=== PATIENT | male | born 1935 | race Caucasian/White ===

== ENCOUNTER 2019-08-30 12:36 | Inpatient (IN) | payer MEDICARE, OTHER ==
[2019-08-30] VITALS (10 sets, daily range): BP systolic 103–144; BP diastolic 52–66
[~2019-08-30] VITALS: Ht 175.3 cm; Wt 82.2 kg
[2019-08-30] MEDS: NS IV ONE ×2 (13:30→16:58)
[2019-08-30 13:34] LABS: MEAN CORPUSCULAR HEMOGLOBIN 29.3 pg (27.0-33.0); MEAN CORPUSCULAR HGB CONC 32.2 g/dl (32.0-36.5); MEAN CORPUSCULAR VOLUME 91.1 fl (80.0-96.0); MONO # 0.1 10^3/uL (0.0-0.8); RED BLOOD COUNT 1.91 10^6/uL (4.30-6.10)
[2019-08-30 13:51] LABS: INR 1.24; PARTIAL THROMBOPLASTIN TIME 31.3 SECONDS (25.0-38.4); PROTHROMBIN TIME 15.3 SECONDS (11.8-14.0)
[2019-08-30 14:02] LABS: ALBUMIN 2.5 GM/DL (3.2-5.2); BILIRUBIN,DIRECT 0.3 MG/DL (0.0-0.2); BILIRUBIN,TOTAL 0.6 MG/DL (0.2-1.0); C REACTIVE PROTEIN QUANTITATIV 12.4 MG/DL (0.00-0.30); CALCIUM LEVEL 7.9 MG/DL (8.8-10.2); CK-MB VALUE MASS 2.3 NG/ML (<3.6); CREATININE FOR GFR 1.61 MG/DL (0.70-1.30); MB/CK RELATIVE INDEX 0.95 (< OR =4); POTASSIUM SERUM 3.6 MEQ/L (3.5-5.1); TOTAL PROTEIN 6.1 GM/DL (6.4-8.2); TROPONIN I 0.02 NG/ML (< 0.10)
[2019-08-30 14:06] LABS: HEMOGLOBIN 5.6 g/dl (13.5-17.5); WHITE BLOOD COUNT 0.4 10^3/uL (4.0-10.0)
[2019-08-30 14:07] LABS: HEMATOCRIT 17.4 % (42.0-52.0); LYMPH # 0.2 10^3/uL (1.5-5.0); PLATELET COUNT, AUTOMATED 15 10^3/uL (150-450)
--- NOTE | 2019-08-30 14:22 | REP ---
Portable chest, single AP view with the patient upright, 01:59 p.m.: Comparison is the PA and lateral chest dated 10/29/2013. There is effacement of the left costophrenic angle as an interval change suggestive of a left pleural effusion. There is diffuse interstitial coarsening, slightly worse than on the comparison study, possibly diffuse interstitial infiltrates versus chronic lung disease. Cardiac size is normal. The onel, mediastinum, skeletal structures are unremarkable. Impression: Effacement of the right costophrenic angle. Coarsened interstitium, chronic versus acute. Electronically Signed by Dario Mcneal MD 08/30/2019 02:14 P
--- NOTE | 2019-08-30 14:35 | REP ---
CT of the brain without IV contrast for fall: I suspect there is a small scalp contusion near the vertex to the left of midline. There is no subdural or epidural hematoma. There is no intraparenchymal or subarachnoid hemorrhage. There is no edema, mass effect or midline shift. The cortical stripe is unremarkable. The ventricles and sulci are dilated compatible with diffuse volume loss. There are bilateral basal ganglia calcifications, likely physiologic. The visualized paranasal sinuses and mastoid air cells are clear. Impression: No subdural hematoma or other acute intracranial hemorrhage. No mass effect, edema or shift. Diffuse volume loss. Bilateral basal ganglia calcifications, likely physiologic. Electronically Signed by Dario Mcneal MD 08/30/2019 02:26 P
--- NOTE | 2019-08-30 14:44 | REP ---
CT of the chest without IV contrast: There are no comparison chest CTs. There is a comparison portable plain film study from earlier today. There is a right pleural effusion corresponding to the effacement of the right costophrenic angle on the comparison plain film study. There are a few tiny air bubbles within the effusion suggesting this could be a pneumo hemothorax or pneumohydrothorax. No rib fractures are identified. No vertebral fractures are identified. No clavicle or sternal fractures are identified. No vertebral fractures are identified. There are no infiltrates or pleural fluid collections on the left. No masses or nodules are identified. The interstitium is diffusely coarsened, nonspecific. This could be acute or chronic or combination. The unenhanced thoracic aorta is unremarkable. Cardiac size is upper normal. There is no pericardial effusion. There is an endovascular stent in the suprarenal abdominal aorta. Impression: Right pleural fluid collection with a few tiny air bubbles, hydropneumothorax versus hemopneumothorax. No rib fractures are identified. No vertebral, sternal, or scapular fractures are identified. There are no infiltrates. There are no masses or nodules. There are is a diffusely coarsened interstitium which could be chronic or acute. The unenhanced thoracic aorta is unremarkable. There is an endovascular stent in the suprarenal abdominal aorta. Electronically Signed by Dario Mcneal MD 08/30/2019 02:36 P
--- NOTE | 2019-08-30 14:45 | REP ---
CT study of the cervical spine without contrast: History: Injury in a fall. No comparison C-spine CT study. Technique: Helical scanning is acquired and overlapping 2 mm high resolution axial images were generated and reviewed at bone and soft tissue window settings. Coronal and sagittal multiplanar re-formations images are generated. CT findings: There is no evidence of cervical spine element fracture. No skull base fracture is seen. Cervical vertebral body heights are preserved. Alignment is normal. Facet joints are normally aligned bilaterally at each cervical level on multiplanar re-formations images. There is no evidence of intraspinal or paraspinal hematoma. No extra vertebral abnormality is seen. There are mild to moderate degenerative spondylosis changes. There is uncovertebral spurring bilaterally at C3-C4. 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 There is osteoarthritic hypertrophy and irregularity at the articulation between the dens and the anterior arch of C1. Impression: Moderate degenerative spondylosis changes. Otherwise negative CT study of the cervical spine without contrast. No fracture seen. Electronically Signed by Roe Thakkar MD 08/30/2019 03:15 P
--- NOTE | 2019-08-30 14:51 | REP ---
CT of the abdomen and pelvis without IV and oral contrast for trauma: There are no comparison studies. There is a right pleural fluid collection with a few tiny air bubbles in the visualized lower lung dove, hydropneumothorax versus hemopneumothorax. The unenhanced hepatic parenchyma is homogeneous except for A 3.2 cm cyst subcapsular in the periphery of the left lobe and a 1.7 cm cyst in the caudate lobe. The gallbladder, pancreas and unenhanced spleen are unremarkable. The adrenals are unremarkable. The unenhanced kidneys are unremarkable except for multiple renal cysts, the largest is in the right renal upper pole measuring up to 12.8 cm. There is a suprarenal abdominal aortic stent as an infrarenal abdominal aortic stent. There is no pararenal hematoma. The maximal AP diameter of the abdominal aorta is 5.2 cm and the transverse diameter and is 4.8 cm. The bowel and mesentery are unremarkable. Pelvis: There is no free fluid or hemoperitoneum. There is a right hip arthroplasty resulting in beam hardening and significant image degradation. The bladder is grossly unremarkable. The pelvic bowel loops are unremarkable. There is no lumbar vertebral body compression deformity or listhesis. No lumbar, sacral or pelvic fractures are identified. Impression: There is no hemoperitoneum or pneumoperitoneum. There is no evidence of solid organ injury, however the study is insensitive in the absence of IV contrast. There are multiple renal cysts as described. There is a suprarenal and infrarenal abdominal aortic endovascular stent as described. No periaortic or retroperitoneal hematoma. No lumbar or pelvic fracture. Left hip arthroplasty. Electronically Signed by Dario Mcneal MD 08/30/2019 02:43 P
[2019-08-30] MEDS ORDERED: CEFEPIME HCL 2 GM in D5W MINI-BAG PLUS 50 ML IV ONE (15:00)
[2019-08-30] MEDS ORDERED: FOLI1TAB11 PO (15:46)
[2019-08-30] MEDS ORDERED: METO25TA4 PO (15:46)
[2019-08-30] MEDS ORDERED: ASPI81TA85 PO (15:46)
[2019-08-30] MEDS ORDERED: TRIA50CA41 PO (15:46)
[2019-08-30] MEDS ORDERED: SYNT50TA PO (15:46)
[2019-08-30] MEDS ORDERED: FURO20TA2 PO (15:46)
[2019-08-30] MEDS ORDERED: TAMS1CAP17 PO (15:46)
[2019-08-30] MEDS ORDERED: METF-791 PO (15:46)
[2019-08-30] MEDS ORDERED: PRAV40TA2 PO (15:46)
[2019-08-30] MEDS ORDERED: VITMTA PO (15:46)
[2019-08-30] MEDS ORDERED: VITAD1000T PO (15:46)
[2019-08-30] MEDS ORDERED: FISH1000 PO (15:46)
[2019-08-30 15:57] LABS: APPEARANCE, URINE CLEAR (CLEAR); BILIRUBIN, URINE AUTO NEGATIVE (NEGATIVE); COLOR, URINE YELLOW (YELLOW); GLUCOSE, URINE (UA) AUTO NEGATIVE (NEGATIVE); KETONE, URINE AUTO NEGATIVE (NEGATIVE); NITRITE, URINE AUTO NEGATIVE (NEGATIVE); PROTEIN, URINE AUTO NEGATIVE (NEGATIVE); SPECIFIC GRAVITY URINE AUTO 1.013 (1.002-1.035); UROBILINOGEN, URINE AUTO 0.2 mg/dL (0.0-2.0)
[2019-08-30 15:58] LABS: BLOOD, URINE BLOOD NEGATIVE (NEGATIVE); LEUKOCYTE ESTERASE, URINE AUTO NEGATIVE (NEGATIVE); RBC, URINE AUTO 1 /HPF (0-3); WBC, URINE AUTO 1 /HPF (0-3)
[2019-08-30 16:00] LABS: MUCUS, URINE SMALL (NEGATIVE)
[2019-08-30 16:03] LABS: INFLUENZA A AMPLIFICATION NEGATIVE (NEGATIVE); INFLUENZA B AMPLIFICATION NEGATIVE (NEGATIVE)
[2019-08-30] MEDS ORDERED: NS 1,000 ML IV SCH (16:35)
[2019-08-30] MEDS ORDERED: diphenhydrAMINE 25 MG CAP PO ONE (16:45)
[2019-08-30] MEDS ORDERED: MAGIC MOUTHWASH SUSPENSION BTL SSP PRN (16:45)
[2019-08-30] MEDS ORDERED: ACETAMINOPHEN TAB 650MG DOSE (2X325MG) PO ONE (16:45)
[2019-08-30] MEDS ORDERED: GLUCAGON FOR INJ 1 MG VIAL (J1610) SC PRN (17:15)
[2019-08-30] MEDS ORDERED: GLUCOSE 4 GM CHEW TABLET PO PRN (17:15)
[2019-08-30] MEDS ORDERED: DEXTROSE 50% 50 ML SYRINGE IV PRN (17:15)
[2019-08-30] MEDS: HumaLOG INSULIN (NovoLOG) PER UNIT SC SCH ×2 (17:30→21:00)
--- NOTE | 2019-08-30 18:08 | HPE ---
DATE OF ADMISSION: 08/30/2019 Time: Approximately 4:30 p.m. CHIEF COMPLAINT: Found down. HISTORY OF THE PRESENT ILLNESS: Mr. 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 He has received two cycles of chemotherapy. His last chemotherapy session was 2 weeks ago. Today at home patient was found down by his daughter and was subsequently brought into the emergency room to be evaluated. On arrival, the patient was febrile with a temperature of 102.1, pulse of 116, blood pressure 104/54. He was found to be severely neutropenic with only 400 white blood cells and an ANC of 20. In addition, he was found to be severely anemic with a hemoglobin of 5.6, hematocrit of 17.4, and a platelet count of 15,000. He had bruising on his left forearm from his fall with some skin abrasions, otherwise no other areas of ecchymoses noted. He underwent extensive radiologic evaluation in the emergency department (ED) with no evidence of any acute fractures whatsoever. He was found to have a lactic acid of 3.1. He is in the process of being treated with the sepsis protocol. He has also been typed and crossed and is receiving one unit of packed red blood cells in addition to cefepime. The patient's daughter and son are at the bedside. They have to look after him. The patient lives alone. This morning when his daughter went to check on him, she found him down. He has some dry blood in his oral cavity. Aside from that, no other visible areas of bleeding are noted with the exception of his left forearm with the ecchymosis but no visible hematomas. His daughter reports that he had an episode of diarrhea but other than that, he has been doing fine. Yesterday he was quite well, and this was acute onset from discussion with the patient as well as his children. ALLERGIES: No known drug allergies. MEDICATIONS: Patient's current home medication are: - aspirin 81 mg daily - cholecalciferol 1000 units daily - folic acid 2 mg daily - furosemide 20 mg daily - Synthroid 50 mcg in the morning - metformin 500 mg in the evening - metoprolol 25 mg twice a day - multivitamin one capsule daily - fish oil 1000 mg twice a day - pravastatin 40 mg daily - Flomax 0.4 mg daily - triamterene 50 mg by mouth daily PAST MEDICAL HISTORY: Notable for: Hypertension. Non-insulin dependent diabetes. He was recently hospitalized at the [facility] for approximately 3 weeks from June into July for treatment of pneumonia. He has right lung small cell lung cancer. He has a history of rheumatoid arthritis. He has a history of hyperlipidemia. History of BPH. History of vitamin D deficiency. PAST SURGICAL HISTORY: Pertinent for: Left hip arthroplasty. 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 He has a history of right pleural effusions, status post chest tube in the past as well as lung biopsy diagnosed as right lung cancer. SOCIAL HISTORY: Patient lives alone. He does not use tobacco or alcohol. His son is his surrogate medical decision maker. On discussion of code status with the patient, he elects to be a DO NOT RESUSCITATE, DO NOT INTUBATE. FAMILY HISTORY: Family history was asked but is noncontributory. REVIEW OF SYSTEMS: 12-systems reviewed with the patient, otherwise negative. He has had a fever, recent fall. He had an episode of diarrhea. He is not having any abdominal pain, any chest pain, any arm pain. He does have chronic lower extremity lymphedema following an episode of cellulitis after a hip arthroplasty. I did look at his wound on his left lateral leg. No evidence of erythema or drainage is noted. He does not have any lesion on his right leg. PHYSICAL EXAMINATION: The patient's temperature is 102.1 rectally, pulse is 116, respirations 25, blood pressure 104/54, oxygen saturation (O2 sat) is 98% on room air. General: Mr. Mehta is an elderly gentleman who appears to be quite frail in appearance. His head is atraumatic, normocephalic. His pupils are equal, round, and reactive to light. Oropharynx is dry. He has some dry blood in his superior palate. No visible oral lesions are noted. Neck His neck is supple. No cervical spine tenderness. No palpable lymphadenopathy. Lung sounds are heard bilaterally without any audible rales, wheezing or rhonchi. Heart: S1, S2, no audible murmurs, rubs, or gallops. He is slightly tachycardic at this time on telemetry. His abdomen is soft, nontender, nondistended. Extremities: Without any significant cyanosis, clubbing, or edema. He has some trace pedal edema from where he had his Coban dressing. Neurologic: Cranial nerves II-XII grossly intact. He is moving all four extremities. Speech is fluent. He has no facial asymmetry. Relevant diagnostic studies are the following: Urine and blood culture have been drawn and are pending. Chest x-ray showed a right pleural effusion. CT of the chest did not show any acute abnormality aside from right pleural fluid collection with a few tiny air bubbles, hydropneumothorax versus hemopneumothorax. This is the site of previous chest tube as well as pleural effusion in the past from what his children tell me. CT of the head did not show any acute findings. CT of the spine did not show any findings. Influenza panel was negative. Urinalysis was negative. Lactic acid was 3.1. Sodium 134, potassium 3.6, chloride 97, bicarbonate 29, BUN is 34, creatinine is 1.61, glucose is 145, INR is 1.24. White blood cell count is 0.4 with an ANC of 20. Hemoglobin is 5.6, hematocrit is 17.4, platelet counts are 15,000. IMPRESSION; 1. Febrile neutropenia. Patient will be admitted to inpatient, warrants minimal two-midnight hospital stay. He will be placed on cefepime 2 grams IV every 8 hours as well as doxycycline 100 mg IV every 12 hours. Cultures have been drawn and are pending at this time. We will consult oncology and infectious disease (ID) in the morning. 2. Pancytopenia. Likely secondary to chemotherapy effect. Patient has already received one unit of packed red blood cells. We will give an additional two units in addition to one pack of platelets. Patient will be treated with Neupogen 480 mcg daily until his ANC is greater than 1500. 3. Non-insulin dependent diabetes mellitus. The patient will be placed on sliding scale. Will hold his metformin for now given that he underwent CT scan of his chest without contrast but anyways due to his acute illness, his metformin will be held. 4. Hypertension. All patients blood pressure medications, including diuretic, will be held. 5. Acute kidney injury. Likely secondary to dehydration with diuretic therapy. His Lasix will be held. He will be hydrated with IV fluid. Will recheck his BMP in the morning. On the CT scan of his abdomen and pelvis, no issues were noted involving his renal system. The patient will be placed on sequential compression devices (SCDs) for deep vein thrombosis (DVT) prophylaxis due to his acute thrombocytopenia. He will be a DO NOT INTUBATE, DO NOT RESUSCITATE per my conversation with him in the presence of his children.
--- NOTE | 2019-08-30 19:00 | ECGEPIP ---
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
[2019-08-30] MEDS: DOXYCYCLINE HYCLATE 100 MG in D5W MINI-BAG PLUS 100 ML IV SCH (21:26)
[2019-08-30] MEDS: NYSTATIN 500,000 U/5 ML SUSP UDC SS SCH (21:26)
[2019-08-30] MEDS: PRAVASTATIN 20 MG TAB PO SCH (21:27)
[2019-08-31] VITALS (15 sets, daily range): BP systolic 96–132; BP diastolic 50–67; O2SAT 94–96
[2019-08-31] MEDS: NS 1,000 ML IV SCH ×3 (01:45→12:45)
[2019-08-31] MEDS: CEFEPIME HCL 2 GM in D5W MINI-BAG PLUS 50 ML IV SCH ×2 (02:56→16:37)
[2019-08-31 05:38] LABS: HEMATOCRIT 23.1 % (42.0-52.0); HEMOGLOBIN 7.5 g/dl (13.5-17.5); MEAN CORPUSCULAR HEMOGLOBIN 29.6 pg (27.0-33.0); MEAN CORPUSCULAR HGB CONC 32.5 g/dl (32.0-36.5); MEAN CORPUSCULAR VOLUME 91.3 fl (80.0-96.0); RED BLOOD COUNT 2.53 10^6/uL (4.30-6.10)
[2019-08-31 05:54] LABS: PLATELET COUNT, AUTOMATED 13 10^3/uL (150-450); WHITE BLOOD COUNT 0.9 10^3/uL (4.0-10.0)
[2019-08-31 06:03] LABS: BLOOD UREA NITROGEN 25 MG/DL (7-18); CALCIUM LEVEL 7.3 MG/DL (8.8-10.2); CARBON DIOXIDE LEVEL 28 MEQ/L (21-32); CHLORIDE LEVEL 109 MEQ/L (98-107); CREATININE FOR GFR 0.98 MG/DL (0.70-1.30); GLOMERULAR FILTRATION RATE > 60.0 (>35); GLUCOSE, FASTING 85 MG/DL (70-100); MAGNESIUM LEVEL 1.6 MG/DL (1.8-2.4); POTASSIUM SERUM 3.5 MEQ/L (3.5-5.1); SODIUM LEVEL 141 MEQ/L (136-145)
[2019-08-31] MEDS: DOXYCYCLINE HYCLATE 100 MG in D5W MINI-BAG PLUS 100 ML IV SCH ×2 (06:10→18:35)
[2019-08-31] MEDS: LEVOTHYROXINE 50MCG TABLET (0.05MG) PO SCH (06:10)
[2019-08-31] MEDS: HumaLOG INSULIN (NovoLOG) PER UNIT SC SCH ×4 (07:30→20:38)
[2019-08-31 08:48] LABS: EOS % 10.9 % (0.0-3.0); LYMPH % 58.7 % (24.0-44.0); MONO % 21.7 % (0.0-5.0); NEUTROPHILS # 0.1 10^3/uL (1.5-8.5); NEUTROPHILS % 8.7 % (36.0-66.0)
[2019-08-31 08:49] LABS: EOS # 0.1 10^3/uL (0.0-0.5); LYMPH # 0.5 10^3/uL (1.5-5.0); MONO # 0.2 10^3/uL (0.0-0.8)
[2019-08-31] MEDS: NYSTATIN 500,000 U/5 ML SUSP UDC SS SCH ×4 (09:34→20:39)
[2019-08-31] MEDS: FOLIC ACID 1 MG TAB PO SCH (09:34)
[2019-08-31] MEDS: TAMSULOSIN 0.4 MG CAP PO SCH (09:34)
[2019-08-31] MEDS: MAG SULF 1GM/100ML (MAG RUN) 1 GM in IV 1 EA IV SCH ×2 (10:41→12:08)
[2019-08-31] MEDS: FILGRASTIM 480 MCG/0.8 ML SYRINGE (J1442) SC SCH (10:41)
[2019-08-31 11:39] LABS: HEMATOCRIT 23.9 % (42.0-52.0); HEMOGLOBIN 7.8 g/dl (13.5-17.5); MEAN CORPUSCULAR HEMOGLOBIN 29.9 pg (27.0-33.0); MEAN CORPUSCULAR HGB CONC 32.6 g/dl (32.0-36.5); MEAN CORPUSCULAR VOLUME 91.6 fl (80.0-96.0); RED BLOOD COUNT 2.61 10^6/uL (4.30-6.10)
[2019-08-31 11:43] LABS: PLATELET COUNT, AUTOMATED 25 10^3/uL (150-450)
[2019-08-31] MEDS: SLF 3 ML SYR IV SCH ×2 (14:00→20:39)
--- NOTE | 2019-08-31 14:44 | IPNPDOC ---
Subjective Date Seen The patient was seen on 08/31/19. Subjective Chief Complaint/HPI Afebrile this morning, c/o feeling cold. Tolerated blood transfusions w/o complication. No active bleeding. Objective Physical Examination General Exam: Positive: Alert, Cooperative, Other (frail elderly gentleman) Eye Exam: Positive: Conjunctiva & lids normal; Negative: Sclera icteric ENT Exam: Positive: Mucous membr. moist/pink Neck Exam: Positive: Supple; Negative: Other Chest Exam: Positive: Clear to auscultation Heart Exam: Positive: Normal S1, Normal S2 Abdomen Exam: Positive: Normal bowel sounds Extremity Exam: Negative: Clubbing, Cyanosis, Edema Skin Exam: Negative: Rash Psych Exam: Positive: Mental status NL, Mood NL Assessment /Plan Assessment # Febrile neutropenia - continue doxycycline + cefepime until ANC > 1500 - continue neupogen - await cx results # Chemo induced Pancytopenia - s/p prbc x 3 - s/p PLTs with improvment in plt count - neupogen # NIDDM - holding metformin - continue SS # HTN - SBP < 120 mm Hg, holding diuretic and anti-HTN meds # Acute kidney injury with CKD stage 3 - improved with IVFs # DVT prophylaxis - SCDs only - Plan/VTE VTE Prophylaxis Ordered?: Yes VTE Exclusion Mechanical Proph: N/A:VTE Prophy Ordered VTE Exclusion Pharmacological: Thrombocytopenia VS, I&O, 24H, Fishbone Vital Signs/I&O Vital Signs Date Time Temp Pulse Resp B/P (MAP) Pulse Ox O2 Delivery O2 Flow Rate FiO2 08/31/19 09:30 97.3 84 20 119/57 95 Room Air 2.0 I&O- Last 24 Hours up to 6 AM 08/31/19 06:00 Intake Total 3880 ml Output Total 1675 ml Balance 2205 ml Laboratory Data 24H LABS Laboratory Tests 2 08/30/19 15:10: Urine Color YELLOW, Urine Appearance CLEAR, Urine pH 6.0, Urine Specific [place] 1.013, Urine Protein NEGATIVE, Urine Glucose (Auto)(UA) NEGATIVE, Urine Ketones (Auto) NEGATIVE, Urine Blood NEGATIVE, Urine Nitrite NEGATIVE, Urine Bilirubin NEGATIVE, Urine Urobilinogen 0.2, Urine Leukocyte Esterase (Auto) NEGATIVE, Urine WBC (Auto) 1, Urine RBC (Auto) 1, Urine Mucus (Auto) SMALL, Urine Sperm (Auto) , Influenza Type A (RT-PCR) NEGATIVE, Influenza Type B (RT-PCR) NEGATIVE 08/30/19 19:50: Bedside Glucose (Misc Panel) 112H 08/31/19 05:20: Lactic Acid Level 0.8 08/31/19 05:22: Immature Granulocyte % (Auto) 0.0, Neutrophils (%) (Auto) 8.7L, Lymphocytes (%) (Auto) 58.7H, Monocytes (%) (Auto) 21.7H, Eosinophils (%) (Auto) 10.9H, Basophils (%) (Auto) 0.0, Immature Granulocyte # (Auto) 0.0, Neutrophils # (Auto) 0.1L, Lymphocytes # (Auto) 0.5L, Monocytes # (Auto) 0.2, Eosinophils # (Auto) 0.1, Basophils # (Auto) 0.0, Nucleated Red Blood Cells % (auto) 0.0, Platelet Estimate , Anion Gap 4L, Glomerular Filtration Rate > 60.0, Calcium Level 7.3L, Magnesium Level 1.6L 08/31/19 08:14: Bedside Glucose (Misc Panel) 86 08/31/19 11:03: Nucleated Red Blood Cells % (auto) 0.0 08/31/19 11:50: Bedside Glucose (Misc Panel) 117H CBC/BMP Laboratory Tests 08/31/19 05:22 08/31/19 11:03 Microbiology Microbiology 08/30/19 Urine Culture, Received Pending 08/30/19 Blood Culture - Preliminary, Resulted No growth after 24 hours . All specim... 08/30/19 Blood Culture - Preliminary, Resulted No growth after 24 hours . All specim... BRADLY GROSSMAN MD Aug 31, 2019 14:44
[2019-08-31] MEDS ORDERED: SLF 3 ML SYR IV PRN (15:00)
[2019-08-31] MEDS: PRAVASTATIN 20 MG TAB PO SCH (17:46)
[2019-09-01] VITALS (13 sets, daily range): BP systolic 123–161; BP diastolic 60–72; O2SAT 93–97
[2019-09-01] MEDS: NS 1,000 ML IV SCH (00:13)
[2019-09-01] MEDS: CEFEPIME HCL 2 GM in D5W MINI-BAG PLUS 50 ML IV SCH ×2 (03:19→15:19)
[2019-09-01 05:40] LABS: HEMATOCRIT 25.7 % (42.0-52.0); HEMOGLOBIN 8.3 g/dl (13.5-17.5); MEAN CORPUSCULAR HEMOGLOBIN 29.2 pg (27.0-33.0); MEAN CORPUSCULAR HGB CONC 32.3 g/dl (32.0-36.5); MEAN CORPUSCULAR VOLUME 90.5 fl (80.0-96.0); RED BLOOD COUNT 2.84 10^6/uL (4.30-6.10)
[2019-09-01 05:42] LABS: PLATELET COUNT, AUTOMATED 25 10^3/uL (150-450)
[2019-09-01 05:57] LABS: ATYPICAL LYMPH 3 % (0-5); EOSINOPHILS 6 % (0-3); LYMPHOCYTES 31 % (16-44); METAMYELOCYTES 2 % (0-0); MONOCYTES 13 % (0-5); MYELOCYTES 2 % (0-0); NEUTROPHILS 39 % (28-66)
[2019-09-01 06:00] LABS: POLYCHROMASIA 1+
[2019-09-01 06:03] LABS: ANISOCYTOSIS 1+; POIKILOCYTOSIS 1+
[2019-09-01 06:04] LABS: DOHLE BODIES 1+; PLATELET ESTIMATE MARKED DECREASE (NORMAL)
[2019-09-01] MEDS: SLF 3 ML SYR IV SCH ×3 (06:38→20:24)
[2019-09-01] MEDS: LEVOTHYROXINE 50MCG TABLET (0.05MG) PO SCH (06:38)
[2019-09-01] MEDS: DOXYCYCLINE HYCLATE 100 MG in D5W MINI-BAG PLUS 100 ML IV SCH ×2 (06:38→19:01)
[2019-09-01] MEDS: HumaLOG INSULIN (NovoLOG) PER UNIT SC SCH ×4 (07:30→20:24)
[2019-09-01] MEDS: TAMSULOSIN 0.4 MG CAP PO SCH (08:05)
[2019-09-01] MEDS: FOLIC ACID 1 MG TAB PO SCH (08:05)
[2019-09-01] MEDS: NYSTATIN 500,000 U/5 ML SUSP UDC SS SCH ×4 (08:05→20:23)
[2019-09-01] MEDS ORDERED: FUROSEMIDE 20 MG TAB PO SCH (09:00)
[2019-09-01] MEDS: FILGRASTIM 480 MCG/0.8 ML SYRINGE (J1442) SC SCH (09:35)
--- NOTE | 2019-09-01 10:44 | IPNPDOC ---
Subjective Date Seen The patient was seen on 09/01/19. Subjective Chief Complaint/HPI Afebrile this am, more altert, sitting up in bed eating breakfast. More talkative. Objective Physical Examination General Exam: Positive: Alert, Cooperative, No Acute Distress Eye Exam: Positive: Conjunctiva & lids normal; Negative: Sclera icteric ENT Exam: Positive: Mucous membr. moist/pink Neck Exam: Positive: Supple; Negative: Other Chest Exam: Positive: Clear to auscultation; Negative: Rhonchi, Wheezing Heart Exam: Positive: Normal S1, Normal S2 Abdomen Exam: Positive: Normal bowel sounds, Soft; Negative: Tenderness Extremity Exam: Negative: Clubbing, Cyanosis, Edema Skin Exam: Negative: Rash Psych Exam: Positive: Mental status NL, Mood NL Assessment /Plan Assessment # Febrile neutropenia - continue doxycycline + cefepime until ANC > 1500 - ANC is improving, 780 this morning - continue neupogen likely another 1-2 says - cultures are no growth so far - transfer to floor with tele - PT eval - anticipate being ready for discharge tuesday # Chemo induced Pancytopenia - s/p prbc x 3 - s/p PLTs with improvment in plt count - neupogen # NIDDM - holding metformin - continue SS # HTN - SBP < 120 mm Hg, holding diuretic and anti-HTN meds # Acute kidney injury with CKD stage 3 - resolved - discontinue IVFs # HTN - resume lasix and metoprolol with parameters - continue to home dyazide # DVT prophylaxis - SCDs only - Plan/VTE VTE Prophylaxis Ordered?: Yes VTE Exclusion Mechanical Proph: N/A:VTE Prophy Ordered VTE Exclusion Pharmacological: Thrombocytopenia VS, I&O, 24H, [facility] Vital Signs/I&O Vital Signs Date Time Temp Pulse Resp B/P (MAP) Pulse Ox O2 Delivery O2 Flow Rate FiO2 09/01/19 10:00 96 Room Air 09/01/19 08:06 98.0 89 20 136/72 (93) 2.0 I&O- Last 24 Hours up to 6 AM 09/01/19 06:00 Intake Total 2755 ml Output Total 950 ml Balance 1805 ml Laboratory Data 24H LABS Laboratory Tests 2 08/31/19 11:03: Nucleated Red Blood Cells % (auto) 0.0 08/31/19 11:50: Bedside Glucose (Misc Panel) 117H 08/31/19 17:38: Bedside Glucose (Misc Panel) 102 08/31/19 20:37: Bedside Glucose (Misc Panel) 147H 09/01/19 05:22: Neutrophils (%) (Auto) , Neutrophils # (Auto) , Nucleated Red Blood Cells % (auto) 0.0, Neutrophils 39, Band Neutrophils 4, Lymphocytes (Manual) 31, Monocytes (Manual) 13H, Eosinophils (Manual) 6H, Metamyelocytes 2H, Myelocytes 2H, Atypical Lymphocytes 3, Polychromasia 1+, Poikilocytosis 1+, Anisocytosis 1+, Dohle Bodies 1+, Platelet Estimate MARKED DECREASE, Immature Platelet Fraction 1.5 CBC/BMP Laboratory Tests 08/31/19 11:03 09/01/19 05:22 Microbiology Microbiology 08/30/19 Urine Culture, Received Pending 08/30/19 Blood Culture - Preliminary, Resulted No growth after 24 hours . All specim... 08/30/19 Blood Culture - Preliminary, Resulted No growth after 24 hours . All specim... BRADLY GROSSMAN MD Sep 01, 2019 10:44
[2019-09-01] MEDS: METOPROLOL TART 25 MG TABLET PO SCH ×2 (11:41→20:23)
[2019-09-01] MEDS: PRAVASTATIN 20 MG TAB PO SCH (17:06)
[2019-09-02] VITALS: BP 125/59
[2019-09-02 04:00] VITALS: BP 130/64
[2019-09-02 06:33] LABS: HEMATOCRIT 27.6 % (42.0-52.0); HEMOGLOBIN 8.9 g/dl (13.5-17.5); MEAN CORPUSCULAR HEMOGLOBIN 29.1 pg (27.0-33.0); MEAN CORPUSCULAR HGB CONC 32.2 g/dl (32.0-36.5); MEAN CORPUSCULAR VOLUME 90.2 fl (80.0-96.0); PLATELET COUNT, AUTOMATED 29 10^3/uL (150-450); RED BLOOD COUNT 3.06 10^6/uL (4.30-6.10); WHITE BLOOD COUNT 5.2 10^3/uL (4.0-10.0)
[2019-09-02] MEDS: LEVOTHYROXINE 50MCG TABLET (0.05MG) PO SCH (06:47)
[2019-09-02] MEDS: CEFEPIME HCL 2 GM in D5W MINI-BAG PLUS 50 ML IV SCH (06:47)
[2019-09-02] MEDS: SLF 3 ML SYR IV SCH ×3 (06:50→20:31)
[2019-09-02 07:06] LABS: ATYPICAL LYMPH 1 % (0-5); EOSINOPHILS 3 % (0-3); LYMPHOCYTES 17 % (16-44); MONOCYTES 15 % (0-5); NEUTROPHILS 58 % (28-66); NUCLEATED RED BLOOD CELL 1 % (0-0)
[2019-09-02 07:07] LABS: ANISOCYTOSIS 1+; PLATELET ESTIMATE MARKED DECREASE (NORMAL)
[2019-09-02 07:08] LABS: DOHLE BODIES 1+
[2019-09-02 07:10] LABS: BLOOD UREA NITROGEN 10 MG/DL (7-18); CALCIUM LEVEL 7.3 MG/DL (8.8-10.2); CARBON DIOXIDE LEVEL 29 MEQ/L (21-32); CHLORIDE LEVEL 108 MEQ/L (98-107); CREATININE FOR GFR 0.78 MG/DL (0.70-1.30); GLOMERULAR FILTRATION RATE > 60.0 (>35); GLUCOSE, FASTING 88 MG/DL (70-100); POTASSIUM SERUM 2.6 MEQ/L (3.5-5.1); SODIUM LEVEL 142 MEQ/L (136-145)
[2019-09-02] MEDS: DOXYCYCLINE HYCLATE 100 MG in D5W MINI-BAG PLUS 100 ML IV SCH (07:13)
[2019-09-02] MEDS: HumaLOG INSULIN (NovoLOG) PER UNIT SC SCH ×4 (07:30→20:31)
[2019-09-02 08:00] VITALS: BP 121/62
[2019-09-02 08:33] LABS: MAGNESIUM LEVEL 1.6 MG/DL (1.8-2.4)
[2019-09-02] MEDS: NYSTATIN 500,000 U/5 ML SUSP UDC SS SCH ×2 (08:44→11:31)
[2019-09-02] MEDS: FOLIC ACID 1 MG TAB PO SCH (08:44)
[2019-09-02] MEDS: POTASSIUM CHLORIDE 10 MEQ SR TABLET PO SCH ×5 (08:44→20:30)
[2019-09-02] MEDS: TAMSULOSIN 0.4 MG CAP PO SCH (08:45)
[2019-09-02] MEDS: METOPROLOL TART 25 MG TABLET PO SCH ×2 (08:45→20:31)
[2019-09-02] MEDS ORDERED: ACETAMINOPHEN TAB 650MG DOSE (2X325MG) PO PRN (10:30)
[2019-09-02 11:33] VITALS: BP 126/58
--- NOTE | 2019-09-02 11:42 | IPNPDOC ---
Subjective Date Seen The patient was seen on 09/02/19. Subjective Chief Complaint/HPI Joseluis has been afebrile for 48 hours. Needing oxygen nocturnally 2 lpm. Feels better. Objective Physical Examination General Exam: Positive: Alert, Cooperative, No Acute Distress Eye Exam: Positive: Conjunctiva & lids normal; Negative: Sclera icteric ENT Exam: Positive: Mucous membr. moist/pink Neck Exam: Positive: Supple; Negative: Other Chest Exam: Positive: Clear to auscultation, Diminished; Negative: Rhonchi, Wheezing Heart Exam: Positive: Normal S1, Normal S2 Abdomen Exam: Positive: Normal bowel sounds, Soft; Negative: Tenderness Extremity Exam: Negative: Clubbing, Cyanosis, Edema Skin Exam: Negative: Rash Psych Exam: Positive: Mental status NL Assessment /Plan Assessment # Febrile neutropenia - discontinue doxycycline + cefepime, cultures are negative and afebrile > 48 hours - ANC 3016 - discontinue neupogen - PT eval - anticipate being ready for discharge tuesday # Chemo induced Pancytopenia - s/p prbc x 3 - s/p PLTs with improvment in plt count - neupogen stopped # NIDDM - holding metformin - continue SS # HTN - SBP < 120 mm Hg, holding diuretic and anti-HTN meds # Acute kidney injury with CKD stage 3 - resolved - discontinue IVFs # HTN - resume metoprolol with parameters - holding home dyazide # Hypokalemia - hold lasix + dyazide - start replacement K - repeat level today - start mag oxide 400 mg tid # Nocturnal hypoxia - cxr in am # DVT prophylaxis - SCDs only - Plan/VTE VTE Prophylaxis Ordered?: Yes VTE Exclusion Mechanical Proph: N/A:VTE Prophy Ordered VTE Exclusion Pharmacological: Thrombocytopenia VS, I&O, 24H, Fishbone Vital Signs/I&O Vital Signs Date Time Temp Pulse Resp B/P (MAP) Pulse Ox O2 Delivery O2 Flow Rate FiO2 09/02/19 08:45 63 121/62 09/02/19 08:00 97.3 18 99 Room Air 09/02/19 08:00 2.0 I&O- Last 24 Hours up to 6 AM 09/02/19 06:00 Intake Total 2190 ml Output Total 300 ml Balance 1890 ml Laboratory Data 24H LABS Laboratory Tests 2 09/01/19 11:48: Bedside Glucose (Misc Panel) 157H 3/14/20 17:02: Bedside Glucose (Misc Panel) 68L 09/01/19 20:17: Bedside Glucose (Misc Panel) 138H 09/02/19 06:14: Immature Granulocyte % (Auto) , Neutrophils (%) (Auto) , Nucleated Red Blood C ells % (auto) 0.4H, Neutrophils 58, Band Neutrophils 6, Lymphocytes (Manual) 17, Monocytes (Manual) 15H, Eosinophils (Manual) 3, Atypical Lymphocytes 1, Nucleated Red Blood Cells 1H, Anisocytosis 1+, Dohle Bodies 1+, Platelet Estimate MARKED DECREASE, Immature Platelet Fraction 2.2, Anion Gap 5L, Gl omerular Filtration Rate > 60.0, Calcium Level 7.3L, Magnesium Level 1.6L CBC/BMP Laboratory Tests 09/02/19 06:14 Microbiology Microbiology 08/30/19 Urine Culture - Final, Complete Escherichia Coli 08/30/19 Blood Culture - Preliminary, Resulted No Growth after 48 hours. All Specime... 08/30/19 Blood Culture - Preliminary, Resulted No Growth after 48 hours. All Specime... BRADLY GROSSMAN MD Sep 02, 2019 11:42
[2019-09-02] MEDS: MAGNESIUM OXIDE 400 MG TAB (MAG-OX) PO SCH ×3 (12:03→20:29)
[2019-09-02] MEDS: KCL 10MEQ/100ML SWI (KRUN) 10 MEQ in IV 1 EA IV SCH ×2 (14:12→15:26)
[2019-09-02 15:54] VITALS: BP 133/61
[2019-09-02] MEDS: PRAVASTATIN 20 MG TAB PO SCH (16:45)
[2019-09-02 20:00] VITALS: BP 139/97
[2019-09-03 04:00] VITALS: BP 131/55
[2019-09-03 05:37] LABS: HEMATOCRIT 25.9 % (42.0-52.0); HEMOGLOBIN 8.6 g/dl (13.5-17.5); MEAN CORPUSCULAR HGB CONC 33.2 g/dl (32.0-36.5); MEAN CORPUSCULAR VOLUME 90.2 fl (80.0-96.0); RED BLOOD COUNT 2.87 10^6/uL (4.30-6.10); WHITE BLOOD COUNT 9.8 10^3/uL (4.0-10.0)
[2019-09-03 05:43] LABS: PLATELET COUNT, AUTOMATED 39 10^3/uL (150-450)
[2019-09-03] MEDS ORDERED: BENZONATATE 100 MG CAP PO PRN (05:45)
[2019-09-03 06:09] LABS: BLOOD UREA NITROGEN 7 MG/DL (7-18); CARBON DIOXIDE LEVEL 28 MEQ/L (21-32); CHLORIDE LEVEL 110 MEQ/L (98-107); CREATININE FOR GFR 0.74 MG/DL (0.70-1.30); GLOMERULAR FILTRATION RATE > 60.0 (>35); GLUCOSE, FASTING 91 MG/DL (70-100); MAGNESIUM LEVEL 1.7 MG/DL (1.8-2.4); POTASSIUM SERUM 4.4 MEQ/L (3.5-5.1); SODIUM LEVEL 141 MEQ/L (136-145)
[2019-09-03 06:18] LABS: ATYPICAL LYMPH 1 % (0-5); EOSINOPHILS 1 % (0-3); LYMPHOCYTES 14 % (16-44); MONOCYTES 6 % (0-5); MYELOCYTES 1 % (0-0); NEUTROPHILS 77 % (28-66)
[2019-09-03 06:19] LABS: ANISOCYTOSIS 1+; PLATELET ESTIMATE MARKED DECREASE (NORMAL)
[2019-09-03] MEDS: LEVOTHYROXINE 50MCG TABLET (0.05MG) PO SCH (06:34)
[2019-09-03] MEDS: SLF 3 ML SYR IV SCH (06:34)
[2019-09-03] MEDS: HumaLOG INSULIN (NovoLOG) PER UNIT SC SCH (07:25)
[2019-09-03 08:00] VITALS: BP 127/62
--- NOTE | 2019-09-03 09:07 | REP ---
Chest x-ray: Two views. History: Shortness of breath. Comparison study: August 30, 2019. Findings: Blunting of the right lateral and posterior pleural angles is again seen consistent with right pleural effusion. There is some pleural thickening along the right lateral chest wall also unchanged. 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 Heart is not enlarged. No acute infiltrate is appreciated. Electronically Signed by Roe Thakkar MD 09/03/2019 08:58 A
[2019-09-03 09:15] VITALS: BP 127/62
[2019-09-03] MEDS: MAGNESIUM OXIDE 400 MG TAB (MAG-OX) PO SCH (09:15)
[2019-09-03] MEDS: TAMSULOSIN 0.4 MG CAP PO SCH (09:15)
[2019-09-03] MEDS: METOPROLOL TART 25 MG TABLET PO SCH (09:15)
[2019-09-03] MEDS: FOLIC ACID 1 MG TAB PO SCH (09:15)
[2019-09-03] MEDS: POTASSIUM CHLORIDE 10 MEQ SR TABLET PO SCH (09:16)
--- NOTE | 2019-09-03 10:42 | IPNPDOC ---
Subjective Date Seen The patient was seen on 09/03/19. Subjective Chief Complaint/HPI Joseluis is doing good today. No fevers, moving around well. Objective Physical Examination General Exam: Positive: Alert, No Acute Distress Eye Exam: Positive: Conjunctiva & lids normal; Negative: Sclera icteric ENT Exam: Positive: Mucous membr. moist/pink Neck Exam: Positive: Supple; Negative: Other Chest Exam: Positive: Clear to auscultation, Diminished; Negative: Rhonchi, Wheezing Heart Exam: Positive: Normal S1, Normal S2 Abdomen Exam: Positive: Normal bowel sounds, Soft; Negative: Tenderness Extremity Exam: Negative: Clubbing, Cyanosis, Edema Skin Exam: Negative: Rash Psych Exam: Positive: Mental status NL Assessment /Plan Assessment # Febrile neutropenia - discontinue doxycycline + cefepime, cultures are negative and afebrile > 48 hours - WBC has improved - discontinue neupogen - PT eval - home today # Chemo induced Pancytopenia - s/p prbc x 3 - s/p PLTs with improvment in plt count - neupogen stopped # NIDDM - holding metformin - continue SS # HTN - SBP < 120 mm Hg, holding diuretic and anti-HTN meds # Acute kidney injury with CKD stage 3 - resolved - discontinue IVFs # HTN - resume metoprolol with parameters - holding home dyazide # Hypokalemia - hold lasix + dyazide - start replacement K - repeat level today - start mag oxide 400 mg tid # Nocturnal hypoxia - cxr in am # DVT prophylaxis - SCDs only Home: today Plan/VTE VTE Prophylaxis Ordered?: Yes VTE Exclusion Mechanical Proph: N/A:VTE Prophy Ordered VTE Exclusion Pharmacological: Thrombocytopenia VS, I&O, 24H, Fishbone Vital Signs/I&O Vital Signs Date Time Temp Pulse Resp B/P (MAP) Pulse Ox O2 Delivery O2 Flow Rate FiO2 09/03/19 09:15 78 127/62 09/03/19 08:00 98.3 20 93 Room Air 09/02/19 08:00 2.0 I&O- Last 24 Hours up to 6 AM 09/03/19 06:00 Intake Total 1360 ml Balance 1360 ml Laboratory Data 24H LABS Laboratory Tests 2 09/02/19 11:28: Bedside Glucose (Misc Panel) 108 09/02/19 16:42: Bedside Glucose (Misc Panel) 94 09/02/19 20:27: Bedside Glucose (Misc Panel) 95 09/03/19 04:45: Immature Granulocyte % (Auto) , Neutrophils (%) (Auto) , Nucleated Red Blood Cells % (auto) 0.2H, Neutrophils 77H, Lymphocytes (Manual) 14L, Monocytes (Manual) 6H, Eosinophils (Manual) 1, Myelocytes 1H, Atypical Lymphocytes 1, Anisocytosis 1+, Platelet Estimate MARKED DECREASE, Anion Gap 3L, Glomerular Filtration Rate > 60.0, Calcium Level 8.0L, Magnesium Level 1.7L CBC/BMP Laboratory Tests 09/02/19 12:51 09/03/19 04:45 Microbiology Microbiology 08/30/19 Urine Culture - Final, Complete Escherichia Coli 08/30/19 Blood Culture - Preliminary, Resulted No Growth after 72 hours. All specime... 08/30/19 Blood Culture - Preliminary, Resulted No Growth after 72 hours. All specime... BRADLY GROSSMAN MD Sep 03, 2019 10:42
--- NOTE | 2019-09-04 11:19 | DSES ---
DATE OF ADMISSION: 08/30/2019 DATE OF DISCHARGE: 09/03/2019 DISCHARGE DIAGNOSES: 1. Febrile neutropenia. 2. Chemotherapy induced pancytopenia. 3. Wpx-qxieord-nrgwofyyc diabetes mellitus type 2. 4. Hypertension. 5. Acute kidney injury, chronic kidney disease stage III. 6. Hypokalemia. PROCEDURES PERFORMED DURING HOSPITALIZATION: None. CONSULTANTS ON THE CASE: None. DISPOSITION: The patient is discharged home. CONDITION ON DISCHARGE: Improved from admission. DISCHARGE INSTRUCTIONS: The patient is instructed to followup with his primary care provider, as well as his oncologist in approximately 1 to 2 weeks' time. RELEVANT LABORATORIES AT THE TIME OF DISCHARGE: White blood cell count 9.8, hemoglobin 8.6, hematocrit 29.9, platelet count 339. Sodium 144, potassium 4.4, chloride 110, bicarbonate 28, BUN 7, creatinine 0.74, magnesium 1.7, calcium 8. Blood cultures times three grew no organisms. Urine cultures grew Escherichia (E) coli less than 3000 colony forming units. TRANSFUSION DURING HOSPITALIZATION: Transfusion of 3 units of packed red blood cell, 1 unit of platelets. IMAGING STUDIES DURING HOSPITALIZATION: 1. Chest x-ray showed effacement of the right costophrenic angle, coarse interstitial, chronic versus acute, please reference imaging report for details. 2. CT scan of the head showed no acute intracranial event. 3. CT of the cervical spine showed no evidence of acute fracture. 4. CT scan of the chest without IV contrast showed right pleural fluid collection with a few tiny air bubbles, hydropneumothorax versus hemopneumothorax. No rib fractures are identified. No vertebral, sternal, scapular fracture identified. There are no infiltrates. There are no masses or nodules. There is a diffusely coarsened interstitium, which could be chronic or acute, unenhanced thoracic aorta is unremarkable. There is endovascular suprarenal abdominal aorta. CT of the abdomen and pelvis without IV and oral contrast showed no acute intraabdominal pathology. DISCHARGE MEDICATIONS: - aspirin 81 mg daily - cholecalciferol 1000 units daily - folic acid 2 mg daily - furosemide 20 mg daily - Synthroid 50 mcg in the morning - metformin 500 mg at night - metoprolol 25 mg twice a day - multivitamin one capsule daily - [place] with fish oil 1000 mg by mouth twice a day - pravastatin 40 mg daily - Flomax 0.4 mg daily - triamterene 50 mg daily HOSPITAL COURSE: Mr. 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 He follows with the [facility] clinic in [place]. The last time he received chemotherapy was approximately 2 weeks ago. He presented from home after being found unresponsive and was brought to the emergency room where he was found to have a white blood cell count of 900 with 8.7 neutrophils and approximately 100 WBCs. He was also found to have a hemoglobin of 7.5, hematocrit 20.1 and platelet count of 13,000. The patient was empirically placed on cefepime and IV doxycycline. He was started on Neupogen. He was admitted to the progressive care unit (PCU) for close monitoring. He was transfused a total of 3 units of packed red blood cells, in addition to 1 unit of platelets. The patient was not noticed to have any active bleeding. Blood cultures drawn during this hospitalization revealed no organisms. Urine culture only grew 3000 colony forming units of Escherichia (E) coli . The patient was treated with approximately 4 days of Cefepime and doxycycline and antibiotics, which were subsequently discontinued once he had adequate bone marrow response with ANC greater than 1500 and he was afebrile for 48 hours. This morning, the patient is doing quite well. His hemoglobin continued to remain stable following transfusion, his platelet counts improved [place] 74003 on admission to 39,000 and he has been cleared by physical therapy (PT) to be discharged home and will go home in stable condition. A total of 30 minutes was spent completing all discharge paperwork.
== END 2019-09-03 11:20 | disposition home or self-care (01) | DRG 809 ==
LOC: EDBD 12:36 → M ED 12:36 → M ED INP 16:35 → ENRESERV 18:25 → M PCU 18:54
PROVIDERS: ADMIT Internal Medicine; ATTEND Internal Medicine
PROC: 30233N1 Transfusion of Nonautologous Red Blood Cells into Peripheral Vein, Percutaneous Approach (ICD-10-PCS; principal; 2019-08-30)
DX: D70.9 Neutropenia, unspecified (principal); N17.9 Acute kidney failure, unspecified; C34.91 Malignant neoplasm of unspecified part of right bronchus or lung; D61.810 Antineoplastic chemotherapy induced pancytopenia; E11.9 Type 2 diabetes mellitus without complications; I12.9 Hypertensive chronic kidney disease with stage 1 through stage 4 chronic kidney disease, or unspecified chronic kidney disease; E87.6 Hypokalemia; N18.3 Chronic kidney disease, stage 3 (moderate); Z79.82 Long term (current) use of aspirin; Z79.899 Other long term (current) drug therapy; M06.9 Rheumatoid arthritis, unspecified; E55.9 Vitamin D deficiency, unspecified; N40.0 Benign prostatic hyperplasia without lower urinary tract symptoms; E78.5 Hyperlipidemia, unspecified; Z66 Do not resuscitate

== ENCOUNTER → 2019-11-05 | Outpatient (CLI) | payer OTHER ==
[~2019-11-05] MED LIST: ASPI81TA85 PO; FISH1000 PO; FOLI1TAB11 PO; FURO20TA2 PO; GASTROGRAFIN SOLUTION 30ML (Q9963) As Ordered ONE; ISOVUE-370 76% 100ML VIAL As Ordered ONE; METF-838 PO; METO25TA4 PO; PRAV40TA2 PO; SYNT50TA PO; TAMS1CAP17 PO; TRIA50CA41 PO; VITAD1000T PO; VITMTA PO
--- NOTE | 2019-11-06 07:32 | REP ---
Clinical: Small cell lung cancer. Technique: Axial contrast enhanced images from the thoracic inlet to the upper abdomen with coronal and sagittal re-formations (followed by CT of the abdomen and pelvis) using 100 ml Isovue 370 intravenous contrast material. Comparison: 08/30/2019. Findings: There is a small complex partially loculated right pleural effusion with enhancing rind and small amount of internal gas similar to prior examination. Small adjacent right lower lobe consolidation/atelectasis with air bronchograms is also identified. Underlying advanced chronic scattered fibrosis and scarring with bronchiectasis is again noted. No further obvious focal consolidation, nodule or mass identified. No significant adenopathy although small subcarinal and right hilar lymph nodes measuring up to approximately 12 mm short axis diameter cannot be excluded. Further evaluation of the mediastinum demonstrates atherosclerotic changes to the thoracic aorta and coronary arteries without aortic aneurysm or dissection and without cardiomegaly or pericardial effusion. [id number] identified with tip in the right atrium. Surrounding musculoskeletal structures without focal osseous abnormality. Limited upper abdomen demonstrates stable 3.8 cm left hepatic cyst, 1.9 cm caudate lobe cyst, incompletely evaluated 13 cm presumed right renal cyst, and left renal cysts. Impression: 1. Small complex partially loculated right pleural collection may reflect empyema as described above and right lower lobe consolidation/ atelectasis with air bronchograms appear relatively unchanged as compared to prior examination. 2. Chronic interstitial fibrosis with scarring and bronchiectasis again noted. 3. Hepatic and renal hypodensities similar to prior examination likely representing cysts. Electronically Signed by Beny Jiménez MD 11/06/2019 07:24 A
--- NOTE | 2019-11-06 07:48 | REP ---
Clinical: Small cell lung cancer. Technique: Axial contrast enhanced images from the lung bases to the pubic symphysis using oral (per protocol) and 100 ml Isovue 370 intravenous contrast material with delayed images of the abdomen as well as coronal and sagittal re-formations. Comparison: 08/30/2019. Findings: Small complex partially loculated rim enhancing right pleural collection containing trace gas is concerning for empyema. Adjacent right lower lobe consolidation/atelectasis with air bronchograms are also identified. Findings may be related to the given history of small cell lung cancer. 3 cm left hepatic cyst and 1.8 cm caudate lobe cyst are again identified and stable. No further hepatic lesions are appreciated. Spleen, pancreas, gallbladder, and adrenal glands are normal / stable. Large bilateral renal cysts measuring up to 12.7 cm along the right kidney and 5.7 cm off the left kidney are again identified and unchanged. The enteric system is without obstruction or acute inflammatory process. Scattered colonic diverticula noted without acute diverticulitis. Evaluation of the pelvis demonstrates a somewhat irregular appearance to the bladder with mild areas of wall thickening as well as a subtle scattered suspected diverticula. No discrete bladder mass is appreciated although enlarged prostate gland with mass effect on the base of the bladder is suggested. Further evaluation of the pelvis is significantly limited by metallic streak artifact from left hip prosthesis. No ascites. No free air. No obvious adenopathy. 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 Musculoskeletal structures demonstrate presumed scattered degenerative changes. Impression: 1. Hepatic and bilateral renal cysts as described above remains stable and appear essentially simple/benign. 2. Colonic diverticula without acute diverticulitis. 3. Irregular contour of the bladder including mild areas of wall thickening, scattered subtle diverticula, and possible septations which may reflect chronic changes related to outlet obstruction from prostatomegaly. 4. No ascites. No adenopathy. No focal inflammatory stranding. Electronically Signed by Beny Jiménez MD 11/06/2019 07:40 A
== END ==
LOC: M RAD 15:10
PROVIDERS: ATTEND Internal Medicine Hematology & Oncology
DX: C34.91 Malignant neoplasm of unspecified part of right bronchus or lung (principal); J90 Pleural effusion, not elsewhere classified; J84.10 Pulmonary fibrosis, unspecified; J98.11 Atelectasis; I70.0 Atherosclerosis of aorta; I25.10 Atherosclerotic heart disease of native coronary artery without angina pectoris; K76.89 Other specified diseases of liver; N28.1 Cyst of kidney, acquired
CPT/HCPCS: 71260; 74177; Q9963; Q9967

== ENCOUNTER → 2019-11-14 | Outpatient (CLI) | payer OTHER ==
[~2019-11-14] MED LIST changes: -GASTROGRAFIN SOLUTION 30ML (Q9963) As Ordered ONE; -ISOVUE-370 76% 100ML VIAL As Ordered ONE
--- NOTE | 2019-11-14 12:17 | REP ---
CHEST, TWO VIEWS: Two views of the chest are performed. Comparison is made with prior CT 11/05/2019 as well as other prior exams. There is no pneumothorax. There is mild residual pleural fluid or thickening inferiorly on the right with adjacent right lower lobe atelectasis/infiltrate. Right central venous catheter is seen with the tip of the junction in the superior vena cava and right atrium. The heart is not enlarged. The left lung is clear. Electronically Signed by Dario Porter MD 11/14/2019 12:25 P
[2019-11-14 12:48] LABS: SOURCE, BODY FLUID pH PLEURAL
[2019-11-14 12:51] LABS: APPEARANCE, BODY FLUID TURBID (CLEAR); PLEURAL FL COLOR PINK (COLORLESS); SOURCE, BODY FLUID PLEURAL
[2019-11-14 13:05] VITALS: BP 128/69
[2019-11-14 13:32] LABS: AMYLASE, BODY FLUID 9 U/L (NOT ESTABLISHED); LDH, BODY FLUID 8086 U/L (NOT ESTABLISHED); SOURCE, BODY FLUID AMYLASE PLEURAL; SOURCE, BODY FLUID GLUCOSE PLEURAL; SOURCE, BODY FLUID LDH PLEURAL; SOURCE, BODY FLUID TOT PROTEIN PLEURAL; TOTAL PROTEIN, BODY FLUID 2.4 G/DL (NOT ESTABLISHED)
--- NOTE | 2019-11-15 11:19 | REP ---
ULTRASOUND-GUIDED RIGHT THORACENTESIS The procedure was performed under the direct supervision of Dr. porter. The risks and benefits of the procedure were explained to the patient and informed consent was obtained. The right pleural effusion was localized using ultrasound guidance. The skin was prepped and draped in a sterile fashion. 1% lidocaine was used as a local anesthetic. Using ultrasound guidance and 8-[place] multi side-hole catheter was inserted using trocar technique. 2 ml of pink colored fluid was withdrawn and sent to lab for analysis. The patient tolerated the procedure well and there were no immediate complications. After the appropriate amount of monitored convalescence the patient was discharged from the department. Electronically Signed by ORVILLE Powell 11/14/2019 05:39 P Electronically Signed by Dario Porter MD 11/15/2019 11:10 A
--- NOTE | 2019-11-16 19:00 | MEDONCTEEN ---
Date/Time of Encounter Date of Encounter: November 16, 2019 Time of Encounter: 18:00 Telephone Encounter Patient's CT scan of the chest had ongoing pleural effusion and changes rené rning for empyema Culture reveals Enterococcus faecalis We'll refer to infectious disease for treatment and management Referral to be be made on 11/19/2019 JOSE MANUEL SEN MD November 16, 2019 19:00
== END ==
LOC: M IRPRO 10:05
PROVIDERS: ATTEND Internal Medicine Hematology & Oncology
DX: C34.90 Malignant neoplasm of unspecified part of unspecified bronchus or lung (principal); J91.8 Pleural effusion in other conditions classified elsewhere

== ENCOUNTER → 2019-12-10 | Outpatient (CLI) | payer OTHER ==
[2019-12-10 09:45] LABS: BASO % 0.2 % (0.0-1.0); EOS # 0.7 10^3/uL (0.0-0.5); EOS % 11.3 % (0.0-3.0); HEMATOCRIT 29.9 % (42.0-52.0); HEMOGLOBIN 9.4 g/dl (13.5-17.5); LYMPH # 1.1 10^3/uL (1.5-5.0); LYMPH % 18.3 % (24.0-44.0); MEAN CORPUSCULAR HEMOGLOBIN 32.1 pg (27.0-33.0); MEAN CORPUSCULAR HGB CONC 31.4 g/dl (32.0-36.5); MONO # 0.6 10^3/uL (0.0-0.8); MONO % 9.2 % (0.0-5.0); NEUTROPHILS # 3.7 10^3/uL (1.5-8.5); NEUTROPHILS % 60.5 % (36.0-66.0); PLATELET COUNT, AUTOMATED 144 10^3/uL (150-450); RED BLOOD COUNT 2.93 10^6/uL (4.30-6.10); WHITE BLOOD COUNT 6.1 10^3/uL (4.0-10.0)
[2019-12-10 09:56] LABS: INR 1.2; PROTHROMBIN TIME 14.9 SECONDS (11.8-14.0)
[2019-12-10 09:57] LABS: PARTIAL THROMBOPLASTIN TIME 33.4 SECONDS (25.0-38.4)
[2019-12-10 10:06] LABS: BLOOD UREA NITROGEN 15 MG/DL (7-18); CALCIUM LEVEL 8.3 MG/DL (8.8-10.2); CARBON DIOXIDE LEVEL 30 MEQ/L (21-32); CHLORIDE LEVEL 103 MEQ/L (98-107); CREATININE FOR GFR 1.16 MG/DL (0.70-1.30); GLOMERULAR FILTRATION RATE > 60.0 (>35); GLUCOSE, FASTING 87 MG/DL (70-100); POTASSIUM SERUM 3.8 MEQ/L (3.5-5.1); SODIUM LEVEL 136 MEQ/L (136-145)
== END ==
LOC: M LAB 09:08
PROVIDERS: ATTEND Internal Medicine Pulmonary Disease
DX: J90 Pleural effusion, not elsewhere classified (principal)

== ENCOUNTER → 2019-12-14 | Outpatient (CLI) | payer OTHER ==
[~2019-12-14] MED LIST changes: +ISOVUE-370 76% 100ML VIAL As Ordered ONE
--- NOTE | 2019-12-14 11:25 | REP ---
CT CHEST WITH IV CONTRAST: HISTORY: Pleural effusion. Comparison chest CT study, November 05, 2019. CT CONTRAST DOSE: 75 mL of intravenous Isovue 370. CT FINDINGS: There is a small right pleural effusion visible containing a few bubbles of air. There is a rind-like pattern of enhancing pleural thickening on the parietal pleura and there is some atelectasis in the right lower lobe. The amount of pleural fluid is essentially unchanged. Pleural thickening is unchanged. There is scattered pattern of peripheral subpleural pulmonary fibrosis and honeycombing again noted, unchanged. No acute infiltrate is seen. Vascular calcification is observed. No pericardial effusion is seen. There is a right-sided Havwja-F-Cjtn catheter. A large cyst is seen in the upper pole of the right kidney. There is a left hepatic cyst as well. IMPRESSION: Right pleural effusion is unchanged with parietal pleural thickening and enhancement. Evidence of COPD. Upper abdominal cysts. Findings essentially unchanged from November 05, 2019. Electronically Signed by Roe Thakkar MD 12/14/2019 11:28 A
== END ==
LOC: M RAD 07:47
PROVIDERS: ATTEND Internal Medicine Pulmonary Disease
DX: J90 Pleural effusion, not elsewhere classified (principal); J84.10 Pulmonary fibrosis, unspecified; K76.89 Other specified diseases of liver
CPT/HCPCS: 71260; Q9967

== ENCOUNTER 2020-01-30 11:58 | Outpatient (CLI) | payer OTHER ==
[~2020-01-30 11:58] MED LIST changes: -ASPI81TA85 PO; +ASPI81TA86 PO; +D31000TA2 PO; -ISOVUE-370 76% 100ML VIAL As Ordered ONE; -VITAD1000T PO
[2020-01-30] MEDS ORDERED: SODIUM CHLORIDE 0.9% 250ML ONE (12:15)
[2020-01-30] MEDS ORDERED: KCL 10MEQ IN STERILE WATER 100ML ONE ×2 (13:10→14:20)
== END 2020-01-30 15:30 ==
LOC: M INFU 11:58
PROVIDERS: ATTEND Internal Medicine Medical Oncology
DX: C34.31 Malignant neoplasm of lower lobe, right bronchus or lung (principal); Z79.899 Other long term (current) drug therapy
CPT/HCPCS: 36415; 80053; 84439; 84443; 85025; 96361; 96365; 96366; G0463; J1642

== ENCOUNTER 2020-02-01 08:36 | Inpatient (IN) | payer OTHER ==
[2020-02-01] MEDS ORDERED: NORCO, ANEXSIA 5/325MG TABLET (HYDROcodone/ACETAMINOPHEN) As Ordered ONE (11:11)
[2020-02-01] MEDS ORDERED: POTASSIUM CHLORIDE 10 MEQ SR TABLET As Ordered ONE (20:10)
[2020-02-01] MEDS ORDERED: PANTOPRAZOLE 40MG TAB (PROTONIX) As Ordered ONE (20:10)
[2020-02-01] MEDS ORDERED: HEPARIN SOD (PORCINE) 5000UNITS/ML 1ML VIAL/SYRINGE As Ordered ONE (20:10)
[2020-02-01] MEDS ORDERED: PRAVASTATIN 20 MG TAB As Ordered ONE (20:11)
[2020-02-01] MEDS ORDERED: METOPROLOL TART 25 MG TABLET As Ordered ONE (20:11)
[2020-02-01] MEDS ORDERED: TAMSULOSIN 0.4 MG CAP As Ordered ONE (20:11)
[2020-02-02] MEDS ORDERED: PERCOCET 5MG/325MG TAB As Ordered ONE ×4 (01:21→18:46)
[2020-02-02] MEDS ORDERED: LEVOTHYROXINE 50MCG TABLET (0.05MG) As Ordered ONE (05:39)
[2020-02-02] MEDS ORDERED: POTASSIUM CHLORIDE 10 MEQ SR TABLET As Ordered ONE ×3 (09:34→12:34)
[2020-02-02] MEDS ORDERED: PANTOPRAZOLE 40MG TAB (PROTONIX) As Ordered ONE (09:34)
[2020-02-02] MEDS ORDERED: METOPROLOL TART 25 MG TABLET As Ordered ONE ×2 (09:35→20:32)
[2020-02-02] MEDS ORDERED: HEPARIN SOD (PORCINE) 5000UNITS/ML 1ML VIAL/SYRINGE As Ordered ONE ×3 (09:35→20:32)
[2020-02-02] MEDS ORDERED: TAMSULOSIN 0.4 MG CAP As Ordered ONE (09:35)
[2020-02-02] MEDS ORDERED: ASPIRIN 81 MG ENTERIC TAB As Ordered ONE (09:36)
[2020-02-02] MEDS ORDERED: HumaLOG INSULIN (NovoLOG) PER UNIT As Ordered ONE (11:39)
[2020-02-02] MEDS ORDERED: FUROSEMIDE 40 MG TAB As Ordered ONE (12:35)
[2020-02-02] MEDS ORDERED: PRAVASTATIN 20 MG TAB As Ordered ONE (20:32)
[2020-02-03] MEDS ORDERED: LEVOTHYROXINE 50MCG TABLET (0.05MG) As Ordered ONE (05:46)
[2020-02-03] MEDS ORDERED: POTASSIUM CHLORIDE 10 MEQ SR TABLET As Ordered ONE ×2 (08:34→08:37)
[2020-02-03] MEDS ORDERED: PANTOPRAZOLE 40MG TAB (PROTONIX) As Ordered ONE (08:34)
[2020-02-03] MEDS ORDERED: HEPARIN SOD (PORCINE) 5000UNITS/ML 1ML VIAL/SYRINGE As Ordered ONE ×2 (08:34→20:57)
[2020-02-03] MEDS ORDERED: METOPROLOL TART 25 MG TABLET As Ordered ONE ×2 (08:35→20:57)
[2020-02-03] MEDS ORDERED: TAMSULOSIN 0.4 MG CAP As Ordered ONE (08:35)
[2020-02-03] MEDS ORDERED: FUROSEMIDE 20 MG TAB As Ordered ONE (08:35)
[2020-02-03] MEDS ORDERED: ASPIRIN 81 MG ENTERIC TAB As Ordered ONE (08:36)
[2020-02-03] MEDS ORDERED: HumaLOG INSULIN (NovoLOG) PER UNIT As Ordered ONE (08:40)
[2020-02-03] MEDS ORDERED: methylPREDNISolone 125MG 2ML VIAL As Ordered ONE (11:05)
[2020-02-03] MEDS ORDERED: FUROSEMIDE 20MG/2ML VIAL (J1940) As Ordered ONE (11:05)
[2020-02-03] MEDS ORDERED: LevoFLOXacin 750MG/150ML IV BAG (J1956 PER 250MG) As Ordered ONE (12:24)
[2020-02-03] MEDS ORDERED: IPRATROPIUM 0.5MG/ALBUTEROL 2.5MG INH SOL UD 3ML (DUONEB) ONE (13:00)
[2020-02-03] MEDS ORDERED: ALBUTEROL 90 MCG/ACT 8GM HFA INHALER ONE (13:00)
[2020-02-03] MEDS ORDERED: guaiFENesin ER 600 MG TAB As Ordered ONE ×2 (14:38→20:56)
[2020-02-03] MEDS ORDERED: PRAVASTATIN 20 MG TAB As Ordered ONE (20:57)
[2020-02-03] MEDS ORDERED: methylPREDNISolone 40MG 1ML VIAL As Ordered ONE (20:59)
[2020-02-04] MEDS ORDERED: HumaLOG INSULIN (NovoLOG) PER UNIT As Ordered ONE ×4 (00:10→17:43)
[2020-02-04] MEDS ORDERED: LEVOTHYROXINE 50MCG TABLET (0.05MG) As Ordered ONE (06:15)
[2020-02-04] MEDS ORDERED: TAMSULOSIN 0.4 MG CAP As Ordered ONE (08:06)
[2020-02-04] MEDS ORDERED: PANTOPRAZOLE 40MG TAB (PROTONIX) As Ordered ONE (08:06)
[2020-02-04] MEDS ORDERED: METOPROLOL TART 25 MG TABLET As Ordered ONE (08:06)
[2020-02-04] MEDS ORDERED: guaiFENesin ER 600 MG TAB As Ordered ONE ×2 (08:06→20:34)
[2020-02-04] MEDS ORDERED: POTASSIUM CHLORIDE 10 MEQ SR TABLET As Ordered ONE ×2 (08:06→10:43)
[2020-02-04] MEDS ORDERED: HEPARIN SOD (PORCINE) 5000UNITS/ML 1ML VIAL/SYRINGE As Ordered ONE ×3 (08:07→20:34)
[2020-02-04] MEDS ORDERED: ASPIRIN 81 MG ENTERIC TAB As Ordered ONE (08:08)
[2020-02-04] MEDS ORDERED: methylPREDNISolone 40MG 1ML VIAL As Ordered ONE ×2 (08:08→20:35)
[2020-02-04] MEDS ORDERED: VANCOMYCIN ORAL SOL 250MG/5ML ORAL SYRINGE ONE (09:00)
[2020-02-04] MEDS ORDERED: LevoFLOXacin 750MG/150ML IV BAG (J1956 PER 250MG) As Ordered ONE (12:40)
[2020-02-04] MEDS ORDERED: IPRATROPIUM 0.5MG/ALBUTEROL 2.5MG INH SOL UD 3ML (DUONEB) ONE (13:00)
[2020-02-04] MEDS ORDERED: DYAZIDE 37.5/25 CAP (TRIAM/HCTZ) ONE (13:00)
[2020-02-04] MEDS ORDERED: METOPROLOL SUCC *XL* 25MG TAB (TopROL *XL*) As Ordered ONE (20:33)
[2020-02-04] MEDS ORDERED: PRAVASTATIN 20 MG TAB As Ordered ONE (20:34)
[2020-02-05] MEDS ORDERED: LEVOTHYROXINE 50MCG TABLET (0.05MG) As Ordered ONE (05:49)
[2020-02-05] MEDS ORDERED: HEPARIN SOD (PORCINE) 5000UNITS/ML 1ML VIAL/SYRINGE As Ordered ONE ×2 (07:57→16:12)
[2020-02-05] MEDS ORDERED: PANTOPRAZOLE 40MG TAB (PROTONIX) As Ordered ONE (07:57)
[2020-02-05] MEDS ORDERED: guaiFENesin ER 600 MG TAB As Ordered ONE (07:57)
[2020-02-05] MEDS ORDERED: POTASSIUM CHLORIDE 10 MEQ SR TABLET As Ordered ONE (07:57)
[2020-02-05] MEDS ORDERED: TAMSULOSIN 0.4 MG CAP As Ordered ONE (07:57)
[2020-02-05] MEDS ORDERED: HumaLOG INSULIN (NovoLOG) PER UNIT As Ordered ONE ×3 (07:59→17:55)
[2020-02-05] MEDS ORDERED: ASPIRIN 81 MG ENTERIC TAB As Ordered ONE (07:59)
[2020-02-05] MEDS ORDERED: methylPREDNISolone 40MG 1ML VIAL As Ordered ONE (08:00)
[2020-02-05] MEDS ORDERED: DEXTROSE 50% 50 ML SYRINGE IV PRN (12:15)
[2020-02-05] MEDS ORDERED: GLUCOSE 4GM CHEW TABLET PO PRN (12:15)
[2020-02-05] MEDS ORDERED: GLUCAGON INJ 1MG VIAL SC PRN (12:15)
[2020-02-05] MEDS ORDERED: PROC10TA4 PO (12:30)
[2020-02-05] MEDS ORDERED: ALBUTEROL 90 MCG/ACT 8GM HFA INHALER INH PRN (12:30)
[2020-02-05] MEDS ORDERED: ONDANSETRON 4 MG TAB PO PRN (12:30)
[2020-02-05] MEDS ORDERED: POTA1TAB14 PO (12:30)
[2020-02-05] MEDS ORDERED: HYDR1CRE30 TOP (12:30)
[2020-02-05] MEDS ORDERED: VENTAER INH (12:30)
[2020-02-05] MEDS ORDERED: ALBUTEROL SULFATE 2.5 MG/0.5 ML INH NEB SOLN INH PRN (12:30)
[2020-02-05] MEDS ORDERED: TRIA37.53 PO (12:30)
[2020-02-05] MEDS ORDERED: HumaLOG INSULIN (NovoLOG) PER UNIT ONE ×2 (12:59→17:55)
[2020-02-05] MEDS ORDERED: IPRATROPIUM 0.5MG/ALBUTEROL 2.5MG INH SOL UD 3ML (DUONEB) ONE (13:00)
[2020-02-05] MEDS ORDERED: LevoFLOXacin 750MG/150ML IV BAG (J1956 PER 250MG) ONE (13:01)
[2020-02-05] MEDS ORDERED: LevoFLOXacin 750MG/150ML IV BAG (J1956 PER 250MG) As Ordered ONE (13:01)
[2020-02-05] MEDS ORDERED: HEPARIN SOD (PORCINE) 5000UNITS/ML 1ML VIAL/SYRINGE ONE (16:12)
[2020-02-05 20:00] VITALS: BP 119/61
[2020-02-05] MEDS: IPRATROPIUM 0.5MG/ALBUTEROL 2.5MG INH SOL UD 3ML (DUONEB) INH SCH (20:50)
[2020-02-05] MEDS: HumaLOG INSULIN (NovoLOG) PER UNIT SC SCH ×2 (21:00→21:17)
[2020-02-05] MEDS: METOPROLOL TART 25 MG TABLET PO SCH (21:16)
[2020-02-05] MEDS: PRAVASTATIN 20 MG TAB PO SCH (21:16)
[2020-02-05] MEDS: methylPREDNISolone 40MG 1ML VIAL IV SCH (21:16)
[2020-02-05] MEDS: guaiFENesin ER 600 MG TAB PO SCH (21:16)
[2020-02-05] MEDS: HEPARIN SOD (PORCINE) 5000UNITS/ML 1ML VIAL/SYRINGE SQ SCH (21:16)
[2020-02-05 21:36] LABS: HEMATOCRIT 32.9 % (42.0-52.0); HEMOGLOBIN 10.6 g/dl (13.5-17.5); MEAN CORPUSCULAR HEMOGLOBIN 32.4 pg (27.0-33.0); MEAN CORPUSCULAR HGB CONC 32.2 g/dl (32.0-36.5); MEAN CORPUSCULAR VOLUME 100.6 fl (80.0-96.0); PLATELET COUNT, AUTOMATED 128 10^3/uL (150-450); RED BLOOD COUNT 3.27 10^6/uL (4.30-6.10); WHITE BLOOD COUNT 8.5 10^3/uL (4.0-10.0)
[2020-02-06] VITALS: BP 119/61
[2020-02-06] MEDS: VANCOMYCIN ORAL SOL 250MG/5ML ORAL SYRINGE PO SCH ×4 (00:06→17:50)
[2020-02-06] MEDS: IPRATROPIUM 0.5MG/ALBUTEROL 2.5MG INH SOL UD 3ML (DUONEB) INH SCH ×4 (01:31→19:46)
[2020-02-06 04:00] VITALS: BP 121/63
[2020-02-06] MEDS: HEPARIN SOD (PORCINE) 5000UNITS/ML 1ML VIAL/SYRINGE SQ SCH ×3 (05:01→22:16)
[2020-02-06] MEDS: LEVOTHYROXINE 50MCG TABLET (0.05MG) PO SCH (05:01)
[2020-02-06 08:00] VITALS: BP 90/55
[2020-02-06] MEDS: METOPROLOL TART 25 MG TABLET PO SCH ×2 (09:00→22:15)
[2020-02-06] MEDS: HumaLOG INSULIN (NovoLOG) PER UNIT SC SCH ×4 (09:21→21:00)
[2020-02-06] MEDS: DYAZIDE 37.5/25 CAP (TRIAM/HCTZ) PO SCH (09:22)
[2020-02-06] MEDS: methylPREDNISolone 40MG 1ML VIAL IV SCH ×2 (09:22→22:15)
[2020-02-06] MEDS: TAMSULOSIN 0.4 MG CAP PO SCH (09:23)
[2020-02-06] MEDS: ASPIRIN 81 MG CHEW TABLET PO SCH (09:23)
[2020-02-06] MEDS: PANTOPRAZOLE 40MG TAB (PROTONIX) PO SCH (09:23)
[2020-02-06] MEDS: guaiFENesin ER 600 MG TAB PO SCH ×2 (09:23→22:15)
[2020-02-06] MEDS: POTASSIUM CHLORIDE 10 MEQ SR TABLET PO SCH (09:43)
[2020-02-06] MEDS ORDERED: SLF 3 ML SYR IV PRN (11:45)
[2020-02-06 12:00] VITALS: BP 93/54
[2020-02-06] MEDS: LevoFLOXacin IV 750 MG in IV 1 EA IV SCH (13:48)
[2020-02-06] MEDS: SLF 3 ML SYR IV SCH ×2 (13:49→22:16)
[2020-02-06 16:00] VITALS: BP 105/74
--- NOTE | 2020-02-06 16:25 | IPNPDOC ---
"Date Seen The patient was seen on 02/06/20. Progress Note SUBJECTIVE: Patient was seen at bedside this am. NAD and alert and oriented this am. Mentation is improved from yesterday. Pending CT head w/o ctx from yesterday. Pt denies CP, SOB abdominal pain or other acute issues. Pt had hypotension overnight and metoprol was held. ROS: Reviewed see above in HPI OBJECTIVE VITAL SIGNS: Please see below. GENERAL: NAD, resting comfortably in bed, no accessory m use, no retractions HEENT: head atruamitc EOMI, mucosa moist NECK: no lymadenopathy, neck supple no thyromegaly CARDIOVASCULAR EXAMINATION: Ns1,2, no m/g/r RESPIRATORY EXAMINATION: no wheezing, rhonci or rales, decreased breath sound on the R lower lobe of lung ABDOMINAL EXAMINATION: soft, nt, nd, nbs EXTREMITIES/SKIN :no pitting edema, no bruising, cyanosis, clubbing or hematomas NEUROLOGICAL EXAMINATION: no focal neuro deficits, AAOx3 PSYCHIATRIC EXAMINATION: appropriate mood and affect LABORATORY DATA, IMAGING STUDIES, MICROBIOLOGY: Please see below. Pending CT head w/o ctx 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 # Diarrhea + for c diff # Hx of COPD # HTN # HypoK| # BPH # DM2 # Hypothyroidism - Continue vancomycin PO q6h for c diff - no diarrhea for 48h - Pharmacy consult for vanco troughs - Pain controlled on current regimen of perc 5/325mg q6h PRN for pain - Continue levaquin for PNA - Continue solumedrol 40mg IV BID and duonebs - Continue chest PT, mucinex and inhaled NS - Continue ASA 81mg PO daily - Continue metoprolol - Zofran for nausea - Continue pravastatin for HLD - Continue Lispro with FSBS and hypoglycemic protocol - CBC, BMP daily - will continue to monitor closely and replete lytes accordingly - Pending K+ level- will replete accordingly DVT ppx: Heparin 5000u SubQ TID GI ppx : Protonix 40mg PO daily Diet: [place] thick DISPOSITION: [Placement for SNF. Pain control ]. VS, I&O, 24H, Fishbone Vital Signs/I&O Vital Signs Date Time Temp Pulse Resp B/P (MAP) Pulse Ox O2 Delivery O2 Flow Rate FiO2 02/06/20 12:00 98.1 114 18 93/54 (67) 94 Room Air 02/06/20 08:00 I&O- Last 24 Hours up to 6 AM 02/06/20 06:00 Output Total 150 ml Balance -150 ml Laboratory Data 24H LABS Vital Signs Date Time Temp Pulse Resp B/P (MAP) Pulse Ox O2 Delivery O2 Flow Rate FiO2 02/06/20 12:00 98.1 114 18 93/54 (67) 94 Room Air 02/06/20 09:00 112 90/55 02/06/20 08:00 02/06/20 08:00 99.2 112 18 90/55 (67) 97 Room Air 02/06/20 04:00 1.0 02/06/20 04:00 98.5 108 18 121/63 (82) 96 Room Air 02/06/20 00:00 98.1 104 16 119/61 (80) 97 Room Air 02/06/20 00:00 1.0 02/05/20 20:00 98.2 109 18 119/61 (80) 96 Room Air Intake & Output 02/06/20 06:00 Output Total 150 ml Balance -150 ml Current Medications Medications (Trade) Dose Ordered Sig/Yeyo Route PRN Reason Start Time Stop Time Status Last Admin Dose Admin Albuterol/ Ipratropium (Duoneb (Ipr 0.5mg/Alb 2.5mg)) 3 ml RQ6H INH 02/05/20 20:00 02/06/20 14:11 3 ML Aspirin (Aspirin Chewable) 81 mg DAILY PO 02/06/20 09:00 02/06/20 09:23 81 MG Guaifenesin (Mucinex Tab Er) 1,200 mg BID PO 02/05/20 21:00 02/06/20 09:23 1,200 MG Heparin Sodium (Porcine) (Heparin) 5,000 units Q8H SQ 02/05/20 22:00 02/06/20 13:49 5,000 UNITS Insulin Human Lispro (HumaLOG INSULIN) See Protocol Table AC SC 02/05/20 17:30 02/06/20 12:42 2 UNITS Levofloxacin 750 mg/IV Miscellaneous Supplies 150 ml @ 100 mls/hr Q24H IV 02/06/20 12:00 02/06/20 13:48 100 MLS/HR Levothyroxine Sodium (Synthroid) 50 mcg DAILY@06 PO 02/06/20 06:00 02/06/20 05:01 50 MCG Methylprednisolone (SOLU medrol) 40 mg Q12H IV 02/05/20 21:00 02/06/20 09:22 40 MG Metoprolol Tartrate (Lopressor) 25 mg BID PO 02/05/20 21:00 02/05/20 21:16 25 MG Pantoprazole Sodium (Protonix) 40 mg DAILY PO 02/06/20 09:00 02/06/20 09:23 40 MG Potassium Chloride (Micro-K Extencaps) 20 meq DAILY PO 02/06/20 09:00 02/06/20 09:43 20 MEQ Pravastatin Sodium (Pravachol) 40 mg QHS PO 02/05/20 21:00 02/05/20 21:16 40 MG Sodium Chloride (Saline Lock Flush) 2 ml SLF IV 02/06/20 14:00 02/06/20 13:49 3 ML Tamsulosin HCl (Flomax) 0.4 mg DAILY PO 02/06/20 09:00 02/06/20 09:23 0.4 MG Triamterene/HCTZ (Dyazide 37.5-25 Mg) 1 ea DAILY PO 02/06/20 09:00 02/06/20 09:22 1 EA Vancomycin HCl (First-Vancomycin 50(Firvanq)- 250mg/5ml) 250 mg Q6H PO 02/06/20 00:00 02/06/20 12:41 250 MG GME ATTESTATION GME ATTESTATION My faculty preceptor for this patient encounter was physically present during the encounter and was fully available. All aspects of the patient interview, examination, medical decision making process, and medical care plan development were reviewed and approved by the faculty preceptor. The faculty preceptor is aware and concurs with the plan as stated in the body of this note and will attest to such by his/her cosignature. ATTENDING NOTE Patient independently seen and examined. Agree with resident's note. Chante Lobato DO Feb 06, 2020 16:25 MARCELINO POOLE MD Mar 04, 2020 11:14"
[2020-02-06 20:00] VITALS: BP 110/52
[2020-02-06] MEDS: PRAVASTATIN 20 MG TAB PO SCH (22:15)
[2020-02-06] MEDS: PERCOCET 5MG/325MG TAB PO PRN (22:17)
[2020-02-07] MEDS: VANCOMYCIN ORAL SOL 250MG/5ML ORAL SYRINGE PO SCH ×4 (00:42→17:30)
[2020-02-07] MEDS: IPRATROPIUM 0.5MG/ALBUTEROL 2.5MG INH SOL UD 3ML (DUONEB) INH SCH ×4 (01:28→20:03)
[2020-02-07 04:00] VITALS: BP 109/73
[2020-02-07] MEDS: LEVOTHYROXINE 50MCG TABLET (0.05MG) PO SCH (05:32)
[2020-02-07] MEDS: SLF 3 ML SYR IV SCH ×3 (05:32→21:30)
[2020-02-07] MEDS: HEPARIN SOD (PORCINE) 5000UNITS/ML 1ML VIAL/SYRINGE SQ SCH ×3 (05:32→21:29)
[2020-02-07 06:27] LABS: HEMATOCRIT 34.4 % (42.0-52.0); MEAN CORPUSCULAR HEMOGLOBIN 32.5 pg (27.0-33.0); MEAN CORPUSCULAR VOLUME 101.8 fl (80.0-96.0); PLATELET COUNT, AUTOMATED 141 10^3/uL (150-450); RED BLOOD COUNT 3.38 10^6/uL (4.30-6.10); WHITE BLOOD COUNT 8.9 10^3/uL (4.0-10.0)
[2020-02-07 06:52] LABS: CALCIUM LEVEL 8.6 MG/DL (8.8-10.2); CREATININE FOR GFR 1.47 MG/DL (0.70-1.30); GLOMERULAR FILTRATION RATE 48.8 (>35); POTASSIUM SERUM 4.5 MEQ/L (3.5-5.1)
--- NOTE | 2020-02-07 07:57 | IPNPDOC ---
Date Seen The patient was seen on 02/07/20. Progress Note SUBJECTIVE: Pt was seen at bedside this am. NAD, AAOx2. Patient's pain is currently controlled. Overnight, his bp ran low and metoprolol is held this am. Bp this am 98/61 with a MAP of 73. Pt is asymptomatic and denies any dizziness, lightheaddedless, blurring of vision, fatigue, n/v/d, fainting, CP, SOB, abdominal discomfort. Overnight, there's no report of diarrhea. Patient continues to be on vanco. OBJECTIVE PHYSICAL EXAMINATION: VITAL SIGNS: Please see below GENERAL: NAD, resting comfortably in bed, no accessory m use, no retractions HEENT: head atruamitc EOMI, mucosa moist NECK: no lymadenopathy, neck supple no thyromegaly CARDIOVASCULAR EXAMINATION: Ns1,2, no m/g/r RESPIRATORY EXAMINATION: no wheezing, rhonci or rales, decreased breath sound on the R lower lobe of lung ABDOMINAL EXAMINATION: soft, nt, nd, nbs EXTREMITIES/SKIN :no pitting edema, no bruising, cyanosis, clubbing or hematomas NEUROLOGICAL EXAMINATION: no focal neuro deficits, AAOx3 PSYCHIATRIC EXAMINATION: appropriate mood and affect LABORATORY DATA, IMAGING STUDIES, MICROBIOLOGY: Please see below. 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 # Diarrhea + for c diff # Hx of COPD # HTN # Hypokalemia (resolved) # BPH # DM2 # Hypothyroidism - Continue vancomycin PO q6h for c diff - no diarrhea for 48h - Pharmacy consult for vanco troughs - Pain controlled on current regimen of perc 5/325mg q6h PRN for pain - Continue levaquin for PNA - Continue duonebs; D/C solumderol IV --> prednisone 40mg PO qdaily - Continue chest PT, mucinex and inhaled NS - Continue ASA 81mg PO daily - Continue metoprolol - Zofran for nausea - Continue pravastatin for HLD - Continue Lispro with FSBS and hypoglycemic protocol - CBC, BMP daily - will continue to monitor closely and replete lytes accordi ngly - Pending K+ level- will replete accordingly - EKG Thyroid panel - pending DVT ppx: Heparin 5000u SubQ TID GI ppx : Protonix 40mg PO daily Diet: [place] thick DISPOSITION: [Placement for SNF. Pain control DISPOSITION: . VS, I&O, 24H, Fishbone Vital Signs/I&O Vital Signs Date Time Temp Pulse Resp B/P (MAP) Pulse Ox O2 Delivery O2 Flow Rate FiO2 02/07/20 04:00 97.6 87 24 109/73 (85) 95 Room Air 02/06/20 08:00 I&O- Last 24 Hours up to 6 AM 02/07/20 05:59 Intake Total 250 ml Output Total 175 ml Balance 75 ml Laboratory Data 24H LABS Laboratory Tests 2 02/07/20 05:35: Nucleated Red Blood Cells % (auto) 0.0, Anion Gap 6L, Glomerular Filtration Rate 48.8, Calcium Level 8.6L CBC/BMP Laboratory Tests 02/06/20 16:22 02/07/20 05:35 GME ATTESTATION GME ATTESTATION My faculty preceptor for this patient encounter was physically present during the encounter and was fully available. All aspects of the patient interview, examination, medical decision making process, and medical care plan development were reviewed and approved by the faculty preceptor. The faculty preceptor is aware and concurs with the plan as stated in the body of this note and will attest to such by his/her cosignature. ATTENDING NOTE Patient independently seen and examined. Agree with resident's note. Chante Lobato DO Feb 07, 2020 07:57 MARCELINO POOLE MD Mar 04, 2020 11:16
[2020-02-07 08:00] VITALS: BP 98/61
[2020-02-07] MEDS: HumaLOG INSULIN (NovoLOG) PER UNIT SC SCH ×4 (08:37→21:00)
[2020-02-07] MEDS: ASPIRIN 81 MG CHEW TABLET PO SCH (08:37)
[2020-02-07] MEDS: methylPREDNISolone 40MG 1ML VIAL IV SCH (08:37)
[2020-02-07] MEDS: TAMSULOSIN 0.4 MG CAP PO SCH (08:38)
[2020-02-07] MEDS: POTASSIUM CHLORIDE 10 MEQ SR TABLET PO SCH (08:38)
[2020-02-07] MEDS: DYAZIDE 37.5/25 CAP (TRIAM/HCTZ) PO SCH (08:38)
[2020-02-07] MEDS: PANTOPRAZOLE 40MG TAB (PROTONIX) PO SCH (08:38)
[2020-02-07] MEDS: guaiFENesin ER 600 MG TAB PO SCH ×2 (08:38→21:29)
[2020-02-07] MEDS: METOPROLOL TART 25 MG TABLET PO SCH ×2 (08:39→21:29)
[2020-02-07 09:42] LABS: CLOSTRIDIUM DIFFICILE PCR POSITIVE (NEGATIVE)
[2020-02-07] MEDS: PERCOCET 5MG/325MG TAB PO PRN ×2 (10:32→22:13)
[2020-02-07 12:00] VITALS: BP 102/61
[2020-02-07 12:16] LABS: MAGNESIUM LEVEL 2.2 MG/DL (1.8-2.4); THYROID STIMULATING HORMONE 1.99 uIU/ML (0.358-3.740); THYROXINE (T4) 9.9 UG/DL (4.5-12.0)
[2020-02-07] MEDS: LevoFLOXacin IV 750 MG in IV 1 EA IV SCH (12:27)
[2020-02-07 16:00] VITALS: BP 102/58
[2020-02-07 20:00] VITALS: BP 104/70
[2020-02-07] MEDS: PRAVASTATIN 20 MG TAB PO SCH (21:29)
[2020-02-08] VITALS: BP 113/63
[2020-02-08] MEDS: VANCOMYCIN ORAL SOL 250MG/5ML ORAL SYRINGE PO SCH ×4 (00:53→17:55)
[2020-02-08] MEDS: IPRATROPIUM 0.5MG/ALBUTEROL 2.5MG INH SOL UD 3ML (DUONEB) INH SCH ×4 (03:31→18:22)
[2020-02-08 04:00] VITALS: BP 119/63
[2020-02-08 04:57] LABS: HEMATOCRIT 36.1 % (42.0-52.0); HEMOGLOBIN 11.4 g/dl (13.5-17.5); MEAN CORPUSCULAR HEMOGLOBIN 32.2 pg (27.0-33.0); MEAN CORPUSCULAR HGB CONC 31.6 g/dl (32.0-36.5); PLATELET COUNT, AUTOMATED 138 10^3/uL (150-450); RED BLOOD COUNT 3.54 10^6/uL (4.30-6.10); WHITE BLOOD COUNT 9.5 10^3/uL (4.0-10.0)
[2020-02-08] MEDS: HEPARIN SOD (PORCINE) 5000UNITS/ML 1ML VIAL/SYRINGE SQ SCH ×3 (05:23→21:04)
[2020-02-08 05:24] LABS: CALCIUM LEVEL 8.7 MG/DL (8.8-10.2); CREATININE FOR GFR 1.35 MG/DL (0.70-1.30); GLOMERULAR FILTRATION RATE 53.9 (>35); POTASSIUM SERUM 4.1 MEQ/L (3.5-5.1)
[2020-02-08] MEDS: LEVOTHYROXINE 50MCG TABLET (0.05MG) PO SCH (05:24)
[2020-02-08] MEDS: SLF 3 ML SYR IV SCH ×3 (05:24→21:10)
[2020-02-08] MEDS: HumaLOG INSULIN (NovoLOG) PER UNIT SC SCH ×4 (07:30→21:00)
[2020-02-08 08:00] VITALS: BP 107/55
--- NOTE | 2020-02-08 08:09 | IPNPDOC ---
Date Seen The patient was seen on 02/08/20. Progress Note SUBJECTIVE: SUBJECTIVE: Pt was seen at bedside this am. NAD, AAOx2. Patient's pain is currently controlled. Overnight, his bp ran low and metoprolol is held this am. Bp this am 98/61 with a MAP of 73. Pt is asymptomatic and denies any dizziness, lightheadness, blurring of vision, fatigue, n/v/d, fainting, CP, SOB, abdominal discomfort. Overnight, there's no report of diarrhea. Patient continues to be on vanco. OBJECTIVE PHYSICAL EXAMINATION: VITAL SIGNS: Please see below GENERAL: NAD, resting comfortably in bed, no accessory m use, no retractions HEENT: head atruamitc EOMI, mucosa moist NECK: no lymadenopathy, neck supple no thyromegaly CARDIOVASCULAR EXAMINATION: Ns1,2, no m/g/r RESPIRATORY EXAMINATION: no wheezing, rhonci or rales, decreased breath sound on the R lower lobe of lung ABDOMINAL EXAMINATION: soft, nt, nd, nbs EXTREMITIES/SKIN :no pitting edema, no bruising, cyanosis, clubbing or hematomas NEUROLOGICAL EXAMINATION: no focal neuro deficits, AAOx3 PSYCHIATRIC EXAMINATION: appropriate mood and affect LABORATORY DATA, IMAGING STUDIES, MICROBIOLOGY: Please see below. 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 # Diarrhea + for c diff # Hx of COPD # HTN # BPH # DM2 # Hypothyroidism - Continue vancomycin PO q6h for c diff - no diarrhea for 48h - Pharmacy consult for vanco troughs - Pain controlled on current regimen of perc 5/325mg q6h PRN for pain - Continue levaquin for PNA - Continue duonebs; continue prednisone 40mg PO qdaily - Continue chest PT, mucinex and inhaled NS - Continue ASA 81mg PO daily - Continue metoprolol - Zofran for nausea - Continue pravastatin for HLD - Continue Lispro with FSBS and hypoglycemic protocol - CBC, BMP daily - will continue to monitor closely and replete lytes accordingly DVT ppx: Heparin 5000u SubQ TID GI ppx : Protonix 40mg PO daily Diet: [place] thick DISPOSITION: Placement for subacute rehab. Pain control VS, I&O, 24H, Fishbone Vital Signs/I&O Vital Signs Date Time Temp Pulse Resp B/P (MAP) Pulse Ox O2 Delivery O2 Flow Rate FiO2 02/08/20 04:00 97.2 86 27 119/63 (81) 95 Room Air 02/07/20 08:00 I&O- Last 24 Hours up to 6 AM 02/08/20 06:00 Intake Total 520 ml Output Total 0 ml Balance 520 ml Laboratory Data 24H LABS Laboratory Tests 2 02/08/20 04:10: Nucleated Red Blood Cells % (auto) 0.0, Anion Gap 4L, Glomerular Filtration Rate 53.9, Calcium Level 8.7L CBC/BMP Laboratory Tests 02/08/20 04:10 GME ATTESTATION GME ATTESTATION My faculty preceptor for this patient encounter was physically present during the encounter and was fully available. All aspects of the patient interview, examination, medical decision making process, and medical care plan development were reviewed and approved by the faculty preceptor. The faculty preceptor is aware and concurs with the plan as stated in the body of this note and will attest to such by his/her cosignature. ATTENDING NOTE Patient independently seen and examined. Agree with resident's note. Chante Lobato DO Feb 08, 2020 08:09 MARCELINO POOLE MD Mar 04, 2020 11:17
[2020-02-08] MEDS: METOPROLOL TART 25 MG TABLET PO SCH ×2 (09:00→21:03)
[2020-02-08] MEDS: predniSONE 20 MG TAB PO SCH (09:09)
[2020-02-08] MEDS: guaiFENesin ER 600 MG TAB PO SCH ×2 (09:09→21:03)
[2020-02-08] MEDS: ASPIRIN 81 MG CHEW TABLET PO SCH (09:09)
[2020-02-08] MEDS: PANTOPRAZOLE 40MG TAB (PROTONIX) PO SCH (09:09)
[2020-02-08] MEDS: POTASSIUM CHLORIDE 10 MEQ SR TABLET PO SCH (09:10)
[2020-02-08] MEDS: DYAZIDE 37.5/25 CAP (TRIAM/HCTZ) PO SCH (09:10)
[2020-02-08] MEDS: TAMSULOSIN 0.4 MG CAP PO SCH (09:10)
[2020-02-08 12:00] VITALS: BP 102/62
[2020-02-08] MEDS: LevoFLOXacin IV 750 MG in IV 1 EA IV SCH (12:28)
[2020-02-08 14:30] VITALS: BP 98/61
[2020-02-08] MEDS: PRAVASTATIN 20 MG TAB PO SCH (21:03)
[2020-02-08 22:00] VITALS: BP 109/63
[2020-02-09] MEDS: IPRATROPIUM 0.5MG/ALBUTEROL 2.5MG INH SOL UD 3ML (DUONEB) INH SCH ×4 (00:11→17:54)
[2020-02-09] MEDS: VANCOMYCIN ORAL SOL 250MG/5ML ORAL SYRINGE PO SCH ×4 (01:00→18:06)
[2020-02-09] MEDS: PERCOCET 5MG/325MG TAB PO PRN ×3 (01:01→20:50)
[2020-02-09 06:00] VITALS: BP 113/69
[2020-02-09] MEDS: LEVOTHYROXINE 50MCG TABLET (0.05MG) PO SCH (06:08)
[2020-02-09] MEDS: SLF 3 ML SYR IV SCH ×3 (06:08→20:51)
[2020-02-09] MEDS: HEPARIN SOD (PORCINE) 5000UNITS/ML 1ML VIAL/SYRINGE SQ SCH ×3 (06:08→20:49)
[2020-02-09 06:57] LABS: HEMATOCRIT 37.6 % (42.0-52.0); HEMOGLOBIN 11.8 g/dl (13.5-17.5); MEAN CORPUSCULAR HEMOGLOBIN 32.4 pg (27.0-33.0); MEAN CORPUSCULAR HGB CONC 31.4 g/dl (32.0-36.5); MEAN CORPUSCULAR VOLUME 103.3 fl (80.0-96.0); PLATELET COUNT, AUTOMATED 134 10^3/uL (150-450); RED BLOOD COUNT 3.64 10^6/uL (4.30-6.10); WHITE BLOOD COUNT 8.5 10^3/uL (4.0-10.0)
[2020-02-09 07:47] LABS: CALCIUM LEVEL 8.7 MG/DL (8.8-10.2); CREATININE FOR GFR 1.39 MG/DL (0.70-1.30); GLOMERULAR FILTRATION RATE 52.1 (>35); POTASSIUM SERUM 4.4 MEQ/L (3.5-5.1)
--- NOTE | 2020-02-09 08:34 | IPNPDOC ---
Date Seen The patient was seen on 02/09/20. Progress Note SUBJECTIVE: Pt was seen at bedside this am. NAD, AAOx2 and at baseline mentation. Patient's pain is currently controlled. Pt denies any dizziness, lightheadness, blurring of vision, fatigue, n/v/d, fainting, CP, SOB, abdominal discomfort. Overnight, there's no report of diarrhea. Patient continues to be on vanco. No other acute events overnight reported by patient or nursing. OBJECTIVE PHYSICAL EXAMINATION: VITAL SIGNS: Please see below GENERAL: NAD, resting comfortably in bed, no accessory m use, no retractions HEENT: head atruamitc EOMI, mucosa moist NECK: no lymadenopathy, neck supple no thyromegaly CARDIOVASCULAR EXAMINATION: Ns1,2, no m/g/r RESPIRATORY EXAMINATION: no wheezing, rhonci or rales, decreased breath sound on the R lower lobe of lung ABDOMINAL EXAMINATION: soft, nt, nd, nbs EXTREMITIES/SKIN :no pitting edema, no bruising, cyanosis, clubbing or hematomas NEUROLOGICAL EXAMINATION: no focal neuro deficits, AAOx3 PSYCHIATRIC EXAMINATION: appropriate mood and affect LABORATORY DATA, IMAGING STUDIES, MICROBIOLOGY: Please see below. 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 # Diarrhea + for c diff # Hx of COPD # HTN # BPH # DM2 # Hypothyroidism - Continue vancomycin PO q6h (day4/10) for c diff - no diarrhea for 48h - Pharmacy consult for vanco troughs monitoring - Pain controlled on current regimen of perc 5/325mg q6h PRN for pain - Continue levaquin for PNA - Continue duonebs; continue prednisone 40mg PO qdaily - Continue chest PT, mucinex and inhaled NS - Continue ASA 81mg PO daily - Continue metoprolol - Zofran for nausea - Continue pravastatin for HLD - Continue Lispro with FSBS and hypoglycemic protocol - CBC, BMP daily - will continue to monitor closely and replete lytes accordingly DVT ppx: Heparin 5000u SubQ TID GI ppx : Protonix 40mg PO daily Diet: [place] thick DISPOSITION: Placement for subacute rehab. Pain control VS, I&O, 24H, Fishbone Vital Signs/I&O Vital Signs Date Time Temp Pulse Resp B/P (MAP) Pulse Ox O2 Delivery O2 Flow Rate FiO2 8/22/20 06:00 98.4 102 18 113/69 (84) 94 Room Air 02/07/20 08:00 I&O- Last 24 Hours up to 6 AM 02/09/20 06:00 Intake Total 530 ml Output Total 0 ml Balance 530 ml Laboratory Data 24H LABS Laboratory Tests 2 02/09/20 06:30: Nucleated Red Blood Cells % (auto) 0.4H, Anion Gap 6L, Glomerular Filtration Rate 52.1, Calcium Level 8.7L CBC/BMP Laboratory Tests 02/09/20 06:30 GME ATTESTATION GME ATTESTATION My faculty preceptor for this patient encounter was physically present during the encounter and was fully available. All aspects of the patient interview, examination, medical decision making process, and medical care plan development were reviewed and approved by the faculty preceptor. The faculty preceptor is aware and concurs with the plan as stated in the body of this note and will attest to such by his/her cosignature. ATTENDING NOTE Patient independently seen and examined. Agree with resident's note. Chante Lobato DO Feb 09, 2020 08:34 MARCELINO POOLE MD Mar 04, 2020 11:18
[2020-02-09] MEDS: METOPROLOL TART 25 MG TABLET PO SCH ×2 (08:35→20:48)
[2020-02-09] MEDS: predniSONE 20 MG TAB PO SCH (08:35)
[2020-02-09] MEDS: PANTOPRAZOLE 40MG TAB (PROTONIX) PO SCH (08:35)
[2020-02-09] MEDS: DYAZIDE 37.5/25 CAP (TRIAM/HCTZ) PO SCH (08:35)
[2020-02-09] MEDS: ASPIRIN 81 MG CHEW TABLET PO SCH (08:35)
[2020-02-09] MEDS: POTASSIUM CHLORIDE 10 MEQ SR TABLET PO SCH (08:36)
[2020-02-09] MEDS: guaiFENesin ER 600 MG TAB PO SCH ×2 (08:36→20:48)
[2020-02-09] MEDS: HumaLOG INSULIN (NovoLOG) PER UNIT SC SCH ×4 (08:37→20:58)
[2020-02-09] MEDS: TAMSULOSIN 0.4 MG CAP PO SCH (08:37)
[2020-02-09] MEDS: LevoFLOXacin IV 750 MG in IV 1 EA IV SCH (13:23)
[2020-02-09 14:00] VITALS: BP 100/54
[2020-02-09 19:50] VITALS: BP 110/66
[2020-02-09] MEDS: PRAVASTATIN 20 MG TAB PO SCH (20:49)
[2020-02-09 23:21] LABS: ALBUMIN 2.5 GM/DL (3.2-5.2); BILIRUBIN,TOTAL 0.6 MG/DL (0.2-1.0); CALCIUM LEVEL 8.7 MG/DL (8.8-10.2); CREATININE FOR GFR 1.24 MG/DL (0.70-1.30); GLOMERULAR FILTRATION RATE 59.4 (>35); MAGNESIUM LEVEL 2.1 MG/DL (1.8-2.4); POTASSIUM SERUM 3.8 MEQ/L (3.5-5.1); TOTAL PROTEIN 6.5 GM/DL (6.4-8.2)
[2020-02-09 23:32] LABS: ABG BASE EXCESS 0.7 (-2.0-2.0); ABG HCO3 24.3 MEQ/L (22.0-26.0); ABG O2 SATURATION 92.6 % (95.0-99.0); ABG PARTIAL PRESSURE CO2 35.5 mmHg (35.0-45.0); ABG TOTAL CO2 25.4 MEQ/L (23.0-31.0); ABG pH (ARTERIAL) 7.454 UNITS (7.350-7.450)
[2020-02-10] MEDS: VANCOMYCIN ORAL SOL 250MG/5ML ORAL SYRINGE PO SCH ×4 (00:02→18:06)
[2020-02-10] MEDS: IPRATROPIUM 0.5MG/ALBUTEROL 2.5MG INH SOL UD 3ML (DUONEB) INH SCH ×4 (00:46→18:18)
[2020-02-10 06:00] VITALS: BP 119/69
[2020-02-10] MEDS: SLF 3 ML SYR IV SCH ×3 (06:02→20:19)
[2020-02-10] MEDS: LEVOTHYROXINE 50MCG TABLET (0.05MG) PO SCH (06:02)
[2020-02-10] MEDS: HEPARIN SOD (PORCINE) 5000UNITS/ML 1ML VIAL/SYRINGE SQ SCH ×3 (06:02→20:19)
[2020-02-10] MEDS: HumaLOG INSULIN (NovoLOG) PER UNIT SC SCH ×4 (07:30→20:13)
[2020-02-10 07:40] LABS: HEMATOCRIT 38.9 % (42.0-52.0); HEMOGLOBIN 12.3 g/dl (13.5-17.5); MEAN CORPUSCULAR HEMOGLOBIN 32.6 pg (27.0-33.0); MEAN CORPUSCULAR HGB CONC 31.6 g/dl (32.0-36.5); MEAN CORPUSCULAR VOLUME 103.2 fl (80.0-96.0); PLATELET COUNT, AUTOMATED 143 10^3/uL (150-450); RED BLOOD COUNT 3.77 10^6/uL (4.30-6.10); WHITE BLOOD COUNT 9.1 10^3/uL (4.0-10.0)
[2020-02-10 08:00] LABS: CREATININE FOR GFR 1.6 MG/DL (0.70-1.30); GLOMERULAR FILTRATION RATE 44.3 (>35); POTASSIUM SERUM 3.6 MEQ/L (3.5-5.1)
[2020-02-10] MEDS: TAMSULOSIN 0.4 MG CAP PO SCH (10:00)
[2020-02-10] MEDS: predniSONE 20 MG TAB PO SCH (10:01)
[2020-02-10] MEDS: PANTOPRAZOLE 40MG TAB (PROTONIX) PO SCH (10:01)
[2020-02-10] MEDS: POTASSIUM CHLORIDE 10 MEQ SR TABLET PO SCH (10:01)
[2020-02-10] MEDS: guaiFENesin ER 600 MG TAB PO SCH ×2 (10:01→20:18)
[2020-02-10] MEDS: DYAZIDE 37.5/25 CAP (TRIAM/HCTZ) PO SCH (10:02)
[2020-02-10] MEDS: METOPROLOL TART 25 MG TABLET PO SCH ×2 (10:04→20:19)
[2020-02-10] MEDS: ASPIRIN 81 MG CHEW TABLET PO SCH (10:04)
--- NOTE | 2020-02-10 10:26 | IPNPDOC ---
Text Note Date of Service The patient was seen on 02/10/20. NOTE SUBJECTIVE: Pt was seen at bedside this am. No acute overnight events reported, no new medical complaints. OBJECTIVE PHYSICAL EXAMINATION: VITAL SIGNS: Please see below GENERAL: NAD, resting comfortably in bed HEENT: NC/AT CARDIOVASCULAR EXAMINATION: +S1S2, RRR RESPIRATORY EXAMINATION: no wheezing, rhonci or rales, decreased breath sound RLL ABDOMINAL EXAMINATION: soft, nt, nd, +BS EXTREMITIES: no edema LABORATORY DATA, IMAGING STUDIES, MICROBIOLOGY: Please see below. ASSESSMENT AND PLAN: 84 yo male with extensive stage lung cancer, small cell, on palliative chemotherapy, expected prognosis < 1 year, follows with Dr. Jade, admitted for pain control s/p fall with rib fractures, hospital stay complicated with CDiff and PNA. 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 - extensive stage/terminal # Diarrhea + for c diff # Hx of COPD # HTN # BPH # DM2 # Hypothyroidism - Continue vancomycin PO q6h (day 510) for c diff - no diarrhea for > 48h - Pain controlled on current regimen of perc 5/325mg q6h PRN for pain - Continue levaquin for PNA - complete 10 days - no cultures available - Continue duonebs; continue prednisone 40mg PO qdaily - Continue chest PT, mucinex and inhaled NS - Continue ASA 81mg PO daily - Continue metoprolol - Zofran for nausea - Continue pravastatin for HLD - Continue Lispro with FSBS and hypoglycemic protocol DVT ppx: Heparin SC GI ppx : Protonix 40mg PO daily Diet: [place] thick DISPOSITION: poor prognosis, pending placement VS,Fishbone, I+O VS, Fishbone, I+O Laboratory Tests 02/10/20 06:22 Vital Signs Date Time Temp Pulse Resp B/P (MAP) Pulse Ox O2 Delivery O2 Flow Rate FiO2 02/10/20 10:04 117 109/69 02/10/20 06:00 98.4 18 90 Room Air 02/07/20 08:00 I&O- Last 24 Hours up to 6 AM 02/10/20 06:00 Intake Total 720 ml Output Total 225 ml Balance 495 ml MARCELINO POOLE MD Feb 10, 2020 10:26
[2020-02-10] MEDS: LevoFLOXacin 750 MG TABLET PO SCH (12:22)
[2020-02-10 14:00] VITALS: BP 97/55
[2020-02-10] MEDS: PERCOCET 5MG/325MG TAB PO PRN ×2 (15:18→15:21)
[2020-02-10 16:13] LABS: HEMOGLOBIN 10.1 g/dl (13.5-17.5); MEAN CORPUSCULAR HEMOGLOBIN 32.8 pg (27.0-33.0); MEAN CORPUSCULAR HGB CONC 33.7 g/dl (32.0-36.5); MEAN CORPUSCULAR VOLUME 97.4 fl (80.0-96.0); PLATELET COUNT, AUTOMATED 116 10^3/uL (150-450); RED BLOOD COUNT 3.08 10^6/uL (4.30-6.10); WHITE BLOOD COUNT 6.1 10^3/uL (4.0-10.0)
[2020-02-10] MEDS: PRAVASTATIN 20 MG TAB PO SCH (20:18)
[2020-02-10 22:00] VITALS: BP 106/69
[2020-02-11] MEDS: VANCOMYCIN ORAL SOL 250MG/5ML ORAL SYRINGE PO SCH ×3 (01:34→11:55)
[2020-02-11] MEDS: IPRATROPIUM 0.5MG/ALBUTEROL 2.5MG INH SOL UD 3ML (DUONEB) INH SCH ×4 (01:44→18:09)
[2020-02-11] MEDS: PERCOCET 5MG/325MG TAB PO PRN ×2 (03:29→09:49)
[2020-02-11] MEDS: LevoFLOXacin 750 MG TABLET PO SCH (05:22)
[2020-02-11] MEDS: SLF 3 ML SYR IV SCH ×3 (05:22→22:23)
[2020-02-11] MEDS: LEVOTHYROXINE 50MCG TABLET (0.05MG) PO SCH (05:22)
[2020-02-11] MEDS: HEPARIN SOD (PORCINE) 5000UNITS/ML 1ML VIAL/SYRINGE SQ SCH (05:22)
[2020-02-11 06:00] VITALS: BP 110/62
[2020-02-11] MEDS: HumaLOG INSULIN (NovoLOG) PER UNIT SC SCH ×2 (07:30→11:49)
[2020-02-11] MEDS: predniSONE 20 MG TAB PO SCH (09:47)
[2020-02-11] MEDS: DYAZIDE 37.5/25 CAP (TRIAM/HCTZ) PO SCH (09:48)
[2020-02-11] MEDS: POTASSIUM CHLORIDE 10 MEQ SR TABLET PO SCH (09:48)
[2020-02-11] MEDS: guaiFENesin ER 600 MG TAB PO SCH ×2 (09:49→21:00)
[2020-02-11] MEDS: ASPIRIN 81 MG CHEW TABLET PO SCH (09:49)
[2020-02-11] MEDS: PANTOPRAZOLE 40MG TAB (PROTONIX) PO SCH (09:49)
[2020-02-11] MEDS: TAMSULOSIN 0.4 MG CAP PO SCH (09:50)
[2020-02-11 09:52] VITALS: BP 109/70
[2020-02-11] MEDS: METOPROLOL TART 25 MG TABLET PO SCH (09:52)
--- NOTE | 2020-02-11 09:56 | IPNPDOC ---
Text Note Date of Service The patient was seen on 02/11/20. NOTE SUBJECTIVE: Pt was seen at bedside this am. No acute overnight events reported. Patient feels unwell. OBJECTIVE PHYSICAL EXAMINATION: VITAL SIGNS: Please see below GENERAL: mild distress, chronically ill appearing HEENT: NC/AT CARDIOVASCULAR EXAMINATION: +S1S2, RRR RESPIRATORY EXAMINATION: no wheezing, rhonci or rales, decreased breath sound RLL ABDOMINAL EXAMINATION: soft, nt, nd, +BS EXTREMITIES: no edema LABORATORY DATA, IMAGING STUDIES, MICROBIOLOGY: Please see below. ASSESSMENT AND PLAN: 84 yo male with extensive stage lung cancer, small cell, on palliative chemotherapy, expected prognosis < 1 year, follows with Dr. Jade, admitted for pain control s/p fall with rib fractures, hospital stay complicated with CDiff and PNA. 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 - extensive stage/terminal # Diarrhea + for c diff # Hx of COPD # HTN # BPH # DM2 # Hypothyroidism - Continue vancomycin PO q6h (day 11/27) for c diff - no diarrhea for > 48h - Pain controlled on current regimen of perc 5/325mg q6h PRN for pain - Continue levaquin for PNA - complete 10 days - no cultures available - Continue duonebs; continue prednisone 40mg PO qdaily - Continue chest PT, mucinex and inhaled NS - Continue ASA 81mg PO daily - Continue metoprolol - Zofran for nausea - Continue pravastatin for HLD - Continue Lispro with FSBS and hypoglycemic protocol DVT ppx: Heparin SC GI ppx : Protonix 40mg PO daily Diet: [place] thick DISPOSITION: poor prognosis. as per oncology, life expectancy around 12 months. Extensive discussion with daughter on the telephone, who states she was unaware of his prognosis, and thought his cancer was gone. She is OK with discussions by phone, and originally planned to meet in person, which has been cancelled. She is agreeable with hospice/[facility]ILDLIFE REFUGE MANAGER for her father. Her brother Nick is the HCP - [phone]. Still trying to reach him. Hospice consult ordered. Discussed with son Nick and daughter - both in agreement for [facility]ILDLIFE REFUGE MANAGER/hospice eval. Will implement orders. VS,Fishbone, I+O VS, Fishbone, I+O Vital Signs Date Time Temp Pulse Resp B/P (MAP) Pulse Ox O2 Delivery O2 Flow Rate FiO2 02/11/20 06:00 98.3 108 20 110/62 (78) 91 Room Air 02/07/20 08:00 I&O- Last 24 Hours up to 6 AM 02/11/20 05:59 Intake Total 300 ml Balance 300 ml MARCELINO POOLE MD Feb 11, 2020 09:56
[2020-02-11] MEDS ORDERED: SCOPOLAMINE 1MG TRANSDERMAL PATCH TOP PRN (13:15)
[2020-02-11 13:53] LABS: CREATININE FOR GFR 1.79 MG/DL (0.70-1.30); GLOMERULAR FILTRATION RATE 38.9 (>35); POTASSIUM SERUM 3.8 MEQ/L (3.5-5.1)
[2020-02-11 14:00] VITALS: BP 91/64
[2020-02-11] MEDS: MORPHINE 2 MG/ML 1ML VIAL (J2270) IV PRN (17:22)
[2020-02-11] MEDS: LORazepam 2 MG/ML VIAL IV PRN (18:15)
[2020-02-12] MEDS: MORPHINE 2 MG/ML 1ML VIAL (J2270) IV PRN ×5 (00:17→23:14)
[2020-02-12] MEDS: IPRATROPIUM 0.5MG/ALBUTEROL 2.5MG INH SOL UD 3ML (DUONEB) INH SCH ×4 (01:35→19:26)
[2020-02-12] MEDS: SLF 3 ML SYR IV SCH ×3 (06:21→22:00)
[2020-02-12] MEDS: PANTOPRAZOLE 40MG TAB (PROTONIX) PO SCH (09:00)
[2020-02-12] MEDS: DYAZIDE 37.5/25 CAP (TRIAM/HCTZ) PO SCH (09:00)
[2020-02-12] MEDS: guaiFENesin ER 600 MG TAB PO SCH ×2 (09:00→21:00)
[2020-02-12] MEDS: TAMSULOSIN 0.4 MG CAP PO SCH (09:00)
[2020-02-12] MEDS: predniSONE 20 MG TAB PO SCH (09:00)
--- NOTE | 2020-02-12 12:08 | IPNPDOC ---
Text Note Date of Service The patient was seen on 02/12/20. NOTE Subjective: Patient is an 84 year old male with a PMHx of Extensive stage lung cancer, small cell, on palliative chemotherapy, expected prognosis < 1 year, follows with Dr. Jade, admitted for pain control s/p fall with rib fractures, hospital stay complicated with C. Diff and PNA. Patient was ultimately transitioned to CONCRETE BATCHING PLANT OPERATOR status o n 02/10 and MOLST form was updated to reflect this change. Patient was seen and examined at the bedside. Currently does not appear to be in any significant distress. 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 diff colitis Hx of COPD HTN BPH DM2 Hypothyroidism DVT prophylaxis Assessment and plan: - Oncology had noted patient has a poor prognoiss and life expectancy of <12 months - Patient was transitioned to CONCRETE BATCHING PLANT OPERATOR status on 02/10 after discussion with family / MOLST form updated - Non-essential medications were discontinue and medications for pain control alone were instituted Disposition: - Awaiting transition to NH with CONCRETE BATCHING PLANT OPERATOR status, possible [facility] [place] VS,[place], I+O VS, [place] I+O Laboratory Tests 02/11/20 12:53 Vital Signs Date Time Temp Pulse Resp B/P (MAP) Pulse Ox O2 Delivery O2 Flow Rate FiO2 02/11/20 14:00 98.2 122 24 91/64 (73) 91 Room Air 02/07/20 08:00 I&O- Last 24 Hours up to 6 AM 02/12/20 06:00 Intake Total 860 ml Balance 860 ml ALEC GUEVARA MD Feb 12, 2020 12:08
[2020-02-13] MEDS: IPRATROPIUM 0.5MG/ALBUTEROL 2.5MG INH SOL UD 3ML (DUONEB) INH SCH ×2 (01:39→08:00)
[2020-02-13] MEDS: MORPHINE 2 MG/ML 1ML VIAL (J2270) IV PRN ×2 (05:41→07:41)
[2020-02-13] MEDS: SLF 3 ML SYR IV SCH (05:41)
[2020-02-13] MEDS: LORazepam 2 MG/ML VIAL IV PRN (06:51)
[2020-02-13] MEDS: PANTOPRAZOLE 40MG TAB (PROTONIX) PO SCH (09:00)
[2020-02-13] MEDS: predniSONE 20 MG TAB PO SCH (09:00)
[2020-02-13] MEDS: TAMSULOSIN 0.4 MG CAP PO SCH (09:00)
[2020-02-13] MEDS: DYAZIDE 37.5/25 CAP (TRIAM/HCTZ) PO SCH (09:00)
[2020-02-13] MEDS: guaiFENesin ER 600 MG TAB PO SCH (09:00)
--- NOTE | 2020-02-13 12:57 | DS.PDOC ---
Discharge Summary General Date of Admission Feb 03, 2020 at 14:30 Date of Discharge 02/13/2020 Discharge Summary PROCEDURES PERFORMED DURING STAY: [None]. 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 diff colitis Hx of COPD HTN BPH DM2 Hypothyroidism DVT prophylaxis COMPLICATIONS/CHIEF COMPLAINT: Fall At Home / Rib fractures HISTORY OF PRESENT ILLNESS / HOSPITAL COURSE: Patient is an 84 year old male with a PMHx of Extensive stage lung cancer, small cell, on palliative chemotherapy, expected prognosis < 1 year, follows with Dr. Jade, admitted for pain control s/p fall with rib fractures, hospital stay complicated with C. Diff and PNA. Patient was ultimately transitioned to CHIEF ENTERPRISE ARCHITECT status o n 02/10 and MOLST form was updated to reflect this change. - Oncology had noted patient has a poor prognosis and life expectancy of <12 months - Patient was transitioned to CHIEF ENTERPRISE ARCHITECT status on 02/10 after discussion with family / MOLST form updated - Non-essential medications were discontinue and medications for pain control alone were instituted Patient ultimately on 02/12 at 10:14AM DISCHARGE MEDICATIONS: Please see below. ALLERGIES: Please see below. LABORATORY DATA: Please see below. ACTIVITY: [As tolerated]. DISPOSITION: . TIME SPENT ON DISCHARGE: 20 minutes Vital Signs/I&Os Vital Signs Date Time Temp Pulse Resp B/P (MAP) Pulse Ox O2 Delivery O2 Flow Rate FiO2 02/12/20 14:09 18 Room Air 02/11/20 14:00 98.2 122 91/64 (73) 91 02/07/20 08:00 I&O- Last 24 Hours up to 6 AM 02/13/20 06:00 Intake Total 150 ml Balance 150 ml Discharge Medications Scheduled Aspirin (Aspir 81) 81 Mg Tablet.dr, 81 MG PO DAILY, (Reported) Cholecalciferol (Vitamin D3) (Vitamin D3) 1,000 Unit Tablet, 1,000 UNITS PO DAILY, (Reported) Levothyroxine Sodium (Synthroid) 50 Mcg Tablet, 50 MCG PO QAM, (Reported) Metformin HCl (Metformin HCl ER) 500 Mg Tab.er.24h, 500 MG PO DAILY, (Reported) Metoprolol Tartrate (Metoprolol Tartrate) 25 Mg Tablet, 25 MG PO BID, (Reported) Multivitamins (Thera M Plus Tablet) 1 Each Tablet, 1 TAB PO DAILY, (Reported) Potassium Chloride (Potassium Chloride) 20 Meq Tablet.er, 20 MEQ PO DAILY, (Reported) Pravastatin Sodium (Pravastatin Sodium) 40 Mg Tablet, 40 MG PO QHS, (Reported) Tamsulosin Hcl (Tamsulosin HCl) 0.4 Mg Capsule, 0.4 MG PO DAILY, (Reported) Triamterene/Hydrochlorothiazid (Triamterene-Hctz 37.5-25 mg Cp) 1 Each Capsule, 1 CAP PO DAILY, (Reported) Scheduled PRN Albuterol Sulfate (Ventolin Hfa) 18 Gm Hfa.aer.ad, 1 PUFF INH Q6H PRN for SHORTNESS OF BREATH, (Reported) Furosemide (Furosemide) 20 Mg Tablet, 20 MG PO DAILY PRN for EDEMA, (Reported) Hydrocortisone (Hydrocortisone) 28 Gm Cream..g., 1 DOSE TOP BID PRN for RASH/ITCHING, (Reported) APPLY TO ARMS Prochlorperazine Maleate (Prochlorperazine Maleate) 10 Mg Tablet, 10 MG PO Q4H PRN for NAUSEA OR VOMITING, (Reported) Allergies Coded Allergies: simvastatin (Verified Allergy, Unknown, 09/21/19) muscle pain ALEC GUEVARA MD Feb 13, 2020 12:57
--- NOTE | 2020-03-13 15:28 | ECGEPIP ---
[facility] Test Date: 2020-02-07 Pat Name: MEREDITH BRIONES Department: Room: [place] [address] Gender: Male Market President: AURELIA : [id number] Requested By: MARCELINO Escobar Order Number: [id number] Reading MD: Pete Percy Measurements Intervals [place] Rate: 101 P: 48 NM: 169 QRS: -11 QRSD: 90 T: 72 QT: 302 QTc: 392 Interpretive Statements SINUS TACHYCARDIA WITH FREQUENT VENTRICULAR PREMATURE COMPLEXES NONSPECIFIC T-WAVE ABNORMALITY ABNORMAL RHYTHM ECG NO PRIOR TRACING FOR COMPARISON SEE SCANNED DOWNTIME REPORT
[2020-03-17 11:14] LABS: BASO % 0.2 % (0.0-1.0); EOS % 0.3 % (0.0-3.0); HEMATOCRIT 31.2 % (42.0-52.0); HEMOGLOBIN 10.4 g/dl (13.5-17.5); LYMPH # 0.4 10^3/uL (1.5-5.0); MEAN CORPUSCULAR HEMOGLOBIN 32.3 pg (27.0-33.0); MEAN CORPUSCULAR HGB CONC 33.3 g/dl (32.0-36.5); MEAN CORPUSCULAR VOLUME 96.9 fl (80.0-96.0); MONO # 0.5 10^3/uL (0.0-0.8); MONO % 7.7 % (0.0-5.0); NEUTROPHILS % 85.1 % (36.0-66.0); PLATELET COUNT, AUTOMATED 122 10^3/uL (150-450); RED BLOOD COUNT 3.22 10^6/uL (4.30-6.10); WHITE BLOOD COUNT 5.9 10^3/uL (4.0-10.0)
--- NOTE | 2020-03-28 16:07 | ECHO ---
DATE OF PROCEDURE: 02/05/2020 Age: 84 Gender: Male Height: 180 cm Weight: 80 kg REFERRING PHYSICIAN: Bear Cm M.D. INDICATION: Cardiac arrhythmia, unspecified. MEASUREMENTS: 2D Measurements: Intraventricular septum 0.96 cm Posterior wall 0.81 cm Left ventricle diastole 3.9 cm Inferior vena cava 1.6 cm Doppler Measurements: No aortic regurgitation No aortic stenosis No mitral regurgitation No mitral stenosis No tricuspid regurgitation No pulmonic regurgitation Aortic valve velocity 171 cm/s LVOT velocity 97.3 cm/s LVOT VTI 25.6 cm Mitral E velocity 99.0 cm/s Mitral A velocity 136 cm/s Mitral deceleration time 261 msec Pulmonary acceleration time 132 msec MITRAL ANNULAR TISSUE DOPPLER E prime lateral 5.1 cm/s, E prime septal 6.4 cm/s DESCRIPTION: Rhythm was sinus tachycardia. This was a technically difficult echocardiogram. The manager supplier made note that the patient was uncooperative and was supine during the examination. CONCLUSIONS: * Appearance of normal left ventricle size and wall thickness. No obvious regional wall motion abnormalities. Normal LV systolic function. LVEF 65% by visual estimate. Grade 1 LV diastolic dysfunction. * Normal right ventricle size and systolic function. Suggestive of normal pulmonary artery systolic pressure. * Mild mitral annular calcification. No apparent mitral regurgitation. * No pericardial effusion. Technically difficulty echocardiogram. MTDD
[2020-03-30 18:14] LABS: HEMATOCRIT 30.3 % (42.0-52.0); HEMOGLOBIN 10.2 g/dl (13.5-17.5); MEAN CORPUSCULAR HEMOGLOBIN 32.5 pg (27.0-33.0); MEAN CORPUSCULAR HGB CONC 33.7 g/dl (32.0-36.5); MEAN CORPUSCULAR VOLUME 96.5 fl (80.0-96.0); PLATELET COUNT, AUTOMATED 115 10^3/uL (150-450); RED BLOOD COUNT 3.14 10^6/uL (4.30-6.10); WHITE BLOOD COUNT 5.9 10^3/uL (4.0-10.0)
[2020-04-15 10:01] LABS: HEMATOCRIT 34.3 % (42.0-52.0); HEMOGLOBIN 11.5 g/dl (13.5-17.5); MEAN CORPUSCULAR HEMOGLOBIN 32.7 pg (27.0-33.0); MEAN CORPUSCULAR HGB CONC 33.5 g/dl (32.0-36.5); MEAN CORPUSCULAR VOLUME 97.4 fl (80.0-96.0); PLATELET COUNT, AUTOMATED 145 10^3/uL (150-450); RED BLOOD COUNT 3.52 10^6/uL (4.30-6.10); WHITE BLOOD COUNT 6.6 10^3/uL (4.0-10.0)
[2020-04-20 08:49] LABS: ABG BASE EXCESS 2.9 (-2.0-2.0); ABG HCO3 26.5 MEQ/L (22.0-26.0); ABG O2 SATURATION 92.5 % (95.0-99.0); ABG PARTIAL PRESSURE CO2 36.8 mmHg (35.0-45.0); ABG PARTIAL PRESSURE O2 65.1 mmHg (75.0-100.0); ABG TOTAL CO2 27.6 MEQ/L (23.0-31.0); ABG pH (ARTERIAL) 7.475 UNITS (7.350-7.450)
[2020-04-20 09:21] LABS: BLOOD UREA NITROGEN 25 MG/DL (7-18); CALCIUM LEVEL 8.8 MG/DL (8.8-10.2); CARBON DIOXIDE LEVEL 32 MEQ/L (21-32); CHLORIDE LEVEL 89 MEQ/L (98-107); CREATININE FOR GFR 1.22 MG/DL (0.70-1.30); GLOMERULAR FILTRATION RATE > 60.0 (>35); GLUCOSE, FASTING 125 MG/DL (70-100); MAGNESIUM LEVEL 1.8 MG/DL (1.8-2.4); POTASSIUM SERUM 3.5 MEQ/L (3.5-5.1); SODIUM LEVEL 127 MEQ/L (136-145)
== END 2020-02-13 11:50 | disposition expired | DRG 183 ==
LOC: M ED 08:36 → M PCU 13:50 → OBSVTOIN 02-03 14:30 → M MS5PR 02-08 13:57
PROVIDERS: ADMIT Internal Medicine; ATTEND Internal Medicine
DX: S22.49XA Multiple fractures of ribs, unspecified side, initial encounter for closed fracture (principal); J18.9 Pneumonia, unspecified organism; J96.01 Acute respiratory failure with hypoxia; C34.31 Malignant neoplasm of lower lobe, right bronchus or lung; J98.11 Atelectasis; J44.1 Chronic obstructive pulmonary disease with (acute) exacerbation; J90 Pleural effusion, not elsewhere classified; E87.1 Hypo-osmolality and hyponatremia; J44.0 Chronic obstructive pulmonary disease with (acute) lower respiratory infection; A04.72 Enterocolitis due to Clostridium difficile, not specified as recurrent; S22.42XA Multiple fractures of ribs, left side, initial encounter for closed fracture; I10 Essential (primary) hypertension; J44.9 Chronic obstructive pulmonary disease, unspecified; W18.30XA Fall on same level, unspecified, initial encounter; Y92.9 Unspecified place or not applicable; E03.9 Hypothyroidism, unspecified; N40.0 Benign prostatic hyperplasia without lower urinary tract symptoms; E11.9 Type 2 diabetes mellitus without complications; E87.6 Hypokalemia; I48.0 Paroxysmal atrial fibrillation